=== PATIENT | female | born 1955 | race Caucasian/White ===

== ENCOUNTER 2017-01-11 23:26 | Inpatient (IN) | payer OTHER ==
[~2017-01-11] VITALS: Ht 165.1 cm; Wt 62.0 kg
[~2017-01-11 23:26] MED LIST: OXYC-279 PO
[2017-01-11 23:51] LABS: BASOPHIL # 0.1 10^3/ul (0.0-0.1); EOSINOPHILS # 0.3 10^3/ul (0.0-0.5); EOSINOPHILS % 4.4 % (0.0-7.0); HEMATOCRIT 37.8 % (37.0-47.0); HEMOGLOBIN 12.4 g/dl (12.0-16.0); LYMPHOCYTES % 26.9 % (15.0-51.0); MEAN CORPUSCULAR HEMOGLOBIN 32.2 pg (29.0-33.0); MEAN CORPUSCULAR HGB CONC 32.8 g/dl (32.0-37.0); MEAN CORPUSCULAR VOLUME 98.2 fl (82.0-101.0); MEAN PLATELET VOLUME 10.3 fl (7.4-10.4); MONOCYTE # 0.4 10^3/ul (0.3-0.9); MONOCYTES % 5.8 % (0.0-11.0); NEUTROPHIL # 4.5 10^3/ul (1.6-7.5); NEUTROPHILS % 61.6 % (39.0-77.0); PLATELET COUNT 276 10^3/UL (140-415); RED BLOOD COUNT 3.85 10^6/ul (4.20-5.40); RED CELL DISTRIBUTION WIDTH 12.5 % (11.5-14.5); WHITE BLOOD COUNT 7.3 10^3/ul (4.8-10.8)
[2017-01-12] VITALS (10 sets, daily range): BP systolic 91–132; BP diastolic 56–85; PULSE 70–89; RESP 17–20; Ht 165.1 cm; Wt 62.0 kg
--- NOTE | 2017-01-12 00:06 | RADRPT ---
PROCEDURE: XR Chest. CLINICAL INDICATION: Chest pain TECHNIQUE: Single AP portable chest. COMPARISON: 01/25/2016 Chest x-ray FINDINGS: The cardiomediastinal silhouette is within normal limits of size. Hyperexpansion and mildly coarse i nterstitial markings compatible with COPD. Atherosclerotic calcification of the aorta. The lungs ar e clear without pleural effusion or focal consolidation. No pneumothorax. The osseous structures an d soft tissues are unremarkable. IMPRESSION: 1. No evidence for active cardiopulmonary disease. RPTAT:AAJJ Physician Ld Date Time Electronically viewed and signed by Physician Ld on 01/12/2017 00:06 LINDA/
[2017-01-12 00:09] LABS: ALANINE AMINOTRANSFERASE 34 IU/L (13-69); ALBUMIN 4.1 g/dl (3.3-4.9); ALBUMIN/GLOBULIN RATIO 1.32; ALKALINE PHOSPHATASE 68 IU/L (42-121); ANION GAP 13 (8-16); ASPARTATE AMINO TRANSFERASE 21 IU/L (15-46); BILIRUBIN,INDIRECT 0.2 mg/dl (0-1.1); BILIRUBIN,TOTAL 0.2 mg/dl (0.2-1.3); BLOOD UREA NITROGEN 33 mg/dl (7-20); CALCIUM 9.6 mg/dl (8.4-10.2); CARBON DIOXIDE 35 mmol/L (21-31); CHLORIDE 99 mmol/L (97-110); CREATININE 1.31 mg/dl (0.44-1.00); GLUCOSE 103 mg/dl (70-220); POTASSIUM 3.3 mmol/L (3.5-5.1); SODIUM 144 mmol/L (135-144); TOTAL PROTEIN 7.2 g/dl (6.1-8.1)
[2017-01-12 00:17] LABS: B-TYPE NATRIURETIC PEPTIDE 761 PG/ML (0-125)
[2017-01-12 00:24] LABS: TROPONIN-I < 0.012 ng/ml (0.00-0.12)
[2017-01-12] MEDS ORDERED: IBUPROFEN 600 MG TAB ONE (01:25)
[2017-01-12] MEDS ORDERED: IBUPROFEN 600 MG TAB PO ONE (01:30)
[2017-01-12] MEDS ORDERED: hydrALAzine 20 MG INJ IV ONE ×2 (01:30)
--- NOTE | 2017-01-12 02:16 | ERD ---
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 Chest pain was mild to moderate intensity no exacerbating limiting factors pressure-like with substernal in location. Pain is mild to moderate intensity. No fevers no chills. No cough. Mild shortness of breath associated. No diaphoresis. No other current issues ROS All systems reviewed and are negative except as per history of present illness. Medications Home Meds Active Scripts Oxycodone HCl/Acetaminophen (Percocet 5-325 mg Tablet) 1 Each Tablet, 1 EACH PO TID for PAIN, #15 TAB Prov:KELLEE RAHMAN MD 01/25/16 Allergies Allergies: Coded Allergies: No Known Drug Allergies (Verified Allergy, Unknown, 01/25/16) PMhx/Soc History of Surgery: Yes (appendectomy, ectopic, c/section x2) Anesthesia Reaction: No Hx 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 Disorder: No Hx Respiratory Disorders: No Hx Cardiac Disorders: Yes (htn) Hx Psychiatric Problems: No Hx Miscellaneous Medical Probl: No Hx Alcohol Use: Yes Hx Substance Use: No Hx Tobacco Use: Yes Smoking Status: Current every day smoker Physical Exam Vitals Vital Signs Date Time Temp Pulse Resp B/P Pulse Ox O2 Delivery O2 Flow Rate FiO2 01/11/17 23:30 98.9 75 18 112/65 96 Physical Exam Const: [] Head: Atraumatic Eyes: Normal Conjunctiva ENT: Normal External Ears, Nose and Mouth. Neck: Full range of motion..~ No meningismus. Resp: Clear to auscultation bilaterally Cardio: Regular rate and rhythm, no murmurs Abd: Soft, non tender, non distended. Normal bowel sounds Skin: No petechiae or rashes Back: No midline or flank tenderness Ext: No cyanosis, or edema Neur: Awake and alert Psych: Normal Mood and Affect Result Diagram: 01/11/17 2335 01/11/175 Results 24 hrs Laboratory Tests Test 01/11/17 23:35 White Blood Count 7.310^3/ul Red Blood Count 3.8510^6/ul Hemoglobin 12.4g/dl Hematocrit 37.8% Mean Corpuscular Volume 98.2fl Mean Corpuscular Hemoglobin 32.2pg Mean Corpuscular Hemoglobin Concent 32.8g/dl Red Cell Distribution Width 12.5% Platelet Count 73475^3/UL Mean Platelet Volume 10.3fl Neutrophils % 61.6% Lymphocytes % 26.9% Monocytes % 5.8% Eosinophils % 4.4% Basophils % 1.0% Nucleated Red Blood Cells % 0.0/100WBC Neutrophils # 4.510^3/ul Lymphocytes # 2.010^3/ul Monocytes # 0.410^3/ul Eosinophils # 0.310^3/ul Basophils # 0.110^3/ul Nucleated Red Blood Cells # 0.010^3/ul Sodium Level 144mmol/L Potassium Level 3.3mmol/L Chloride Level 99mmol/L Carbon Dioxide Level 35mmol/L Anion Gap 13 Blood Urea Nitrogen 33mg/dl Creatinine 1.31mg/dl Glucose Level 103mg/dl Calcium Level 9.6mg/dl Total Bilirubin 0.2mg/dl Direct Bilirubin 0.00mg/dl Indirect Bilirubin 0.2mg/dl Aspartate Amino Transf (AST/SGOT) 21IU/L Alanine Aminotransferase (ALT/SGPT) 34IU/L Alkaline Phosphatase 68IU/L Troponin I < 0.012ng/ml B-Type Natriuretic Peptide 761PG/ML Total Protein 7.2g/dl Albumin 4.1g/dl Globulin 3.10g/dl Albumin/Globulin Ratio 1.32 Current Medications Medications (Trade) Dose Ordered Sig/Lorena Route PRN Reason Start Time Stop Time Status Last Admin Dose Admin Hydralazine HCl (Apresoline) 20 mg ONCE ONCE IV 01/12/17 01:30 01/12/17 01:31 DC 01/12/17 01:37 Hydralazine HCl (Apresoline) 20 mg ONCE ONCE IV 01/12/17 01:30 01/12/17 01:31 DC Ibuprofen (Motrin) 600 mg STK-MED ONCE .ROUTE 01/12/17 01:25 01/12/17 01:26 DC Ibuprofen (Motrin) 600 mg ONCE ONCE PO 01/12/17 01:30 01/12/17 01:31 DC 01/12/17 01:37 Procedures/MDM EKG: Rate/Rhythm: [Normal Sinus Rhythm] QRS, ST, T-waves: [No changes consistent w/ acute ischemia] Impression: [No evidence of ischemia or arrhythmia] Chest X-ray 1V Interpreted by me: Soft Tissue: No acute abnormalities Bones: No acute abnormalities Mediastinum/Cardiac Silhouette/Lungs: [No acute abnormalities] Patient's symptoms are concerning for cardiac cause will require inpatient workup and continuous monitoring. Further w/u for ischemia, arrhythmia, PE or dissection will be deferred to the inpatient team. Accepting Care Team: Current data and ongoing care discussed. Time: 1:30 AM Primary Provider: Hospitalists Consulting: [XOXOXO] Outstanding Data: none Departure Diagnosis: Primary Impression: Chest pain Chest pain type: unspecified Qualified Code: R07.9 - Chest pain, unspecified type Condition: Serious ABRIL VALENZUELA Jan 12, 2017 02:16
[2017-01-12] MEDS ORDERED: morphine 4 MG/ML VIAL IV STA (03:29)
[2017-01-12] MEDS ORDERED: ONDANSETRON 4 MG INJ IV STA (03:29)
[2017-01-12] MEDS ORDERED: SOD CHLORIDE 0.9% 500 ML IV ONE (05:00)
[2017-01-12] MEDS ORDERED: NITROGLYCERIN (SL) 0.4 MG TAB SL PRN (05:00)
[2017-01-12] MEDS ORDERED: FURO20TA3 PO (05:11)
[2017-01-12] MEDS ORDERED: POTASSIUM CHLORIDE (SR) 20 MEQ TAB PO ONE (05:30)
[2017-01-12] MEDS: morphine 2 MG INJ IV PRN ×3 (06:08→22:33)
[2017-01-12] MEDS ORDERED: DIPHENHYDRAMINE 25 MG CAP PO PRN (07:30)
--- NOTE | 2017-01-12 08:14 | HP ---
Date/Time of Note Date/Time of Note DATE: 01/12/17 TIME: 08:06 Assessment/Plan VTE Prophylaxis VTE Prophylaxis Intervention: heparin Lines/Catheters IV [facility] (from [facility] Saline Lock Urinary Cath still in place: No Assessment/Plan Assessment/Plan 1. Chest pain, rule out ACS -Telemetry monitoring Trend troponin Supplemental oxygen, aspirin, beta-cleve, with as needed nitro morphine. 2D echo and cardiology consult 2. Presumed CHRISTINA -Gentle IV fluids, then will monitor a.m. labs -Nephrology consult 3. History of hypertension, blood pressure within goal -Continue antihypertensives adjustment as needed 4. History of COPD -Supplemental oxygen, with as needed bronchodilators and as needed steroid 5. Tobacco abuse -Smoking cessation advised HPI/ROS Admit Date/Time Admit Date/Time Jan 12, 2017 at 02:00 Hx of Present Illness This is a 61-year-old female with a history of hypertension, COPD and probable CHF who presented to the ER complaining of chest pain. Pain started 2 days ago and is located in the mid chest with radiation to her left arm. Pain is described as "a hole in the chest, aches and as if somebody sits on my chest ". She reported associated shortness of breath. She said that she had cardiac cath a year ago and was told that "there is too little to clean". Patient takes Lasix at home, but she does not really know why. She smokes about 1 PPD. When she presented to the ER, vitals were stable. First troponin is negative and EKG was without ST-T wave abnormalities. Chest x-ray was no active findings. PMH/Family/Social Social History Smoking Status: Current every day smoker Exam/Review of Systems Vital Signs Vitals Vital Signs Date Time Temp Pulse Resp B/P Pulse Ox O2 Delivery O2 Flow Rate FiO2 01/12/17 04:27 98.1 85 18 110/85 97 Room Air Intake and Output 01/11/17 01/11/17 01/12/17 15:00 23:00 07:00 Intake Total 400 ml Balance 400 ml Exam Constitutional: alert, oriented, other (Appears slightly weak) Head: atraumatic, normocephalic Eyes: EOMI, PERRL ENMT: other (Missing tooth and poor dentition) Respiratory: clear to auscultation, normal air movement Cardiovascular: nl pulses, regular rate and rhythm Gastrointestinal: soft Extremities: normal pulses Labs Result Diagram: 01/11/17 2335 01/11/17 2335 Medications Medications Current Medications Aspirin (Aspirin) 81 mg DAILY PO ; Start 01/12/17 at 09:00 Atorvastatin Calcium (Lipitor) 20 mg HS PO ; Start 01/12/17 at 21:00 Nitroglycerin (Nitroglycerin (Sl Tab) 0.4 Mg) 1 tab Q5M PRN SL ANGINA; Start 01/12/17 at 05:00 Morphine Sulfate (morphine) 2 mg Q4H PRN IV PAIN Last administered on 06:08; Admin Dose 2 MG; Start 01/12/17 at 05:00 Heparin Sodium (Porcine) (Heparin (5000 Units/0.5 ml)) 5,000 unit BID SC ; Start 01/12/17 at 09:00 Metoprolol Tartrate (Lopressor) 12.5 mg BID PO ; Start 01/12/17 at 09:00 Furosemide (Lasix) 20 mg DAILY PO ; Start 01/12/17 at 09:00 Morphine Sulfate (Ms Contin (Er)) 15 mg BID PO ; Start 01/12/17 at 09:00 Diphenhydramine HCl (Benadryl) 25 mg Q6H PRN PO ITCHING; Start 01/12/17 at 07: 30 ABRIL LAND MD Jan 12, 2017 08:14
[2017-01-12 08:22] LABS: BASOPHIL # 0.1 10^3/ul (0.0-0.1); BASOPHILS % 1.1 % (0.0-2.0); EOSINOPHILS # 0.3 10^3/ul (0.0-0.5); EOSINOPHILS % 4.4 % (0.0-7.0); HEMATOCRIT 35.8 % (37.0-47.0); HEMOGLOBIN 11.8 g/dl (12.0-16.0); LYMPHOCYTES # 2.1 10^3/ul (0.8-2.9); LYMPHOCYTES % 28.5 % (15.0-51.0); MEAN CORPUSCULAR HEMOGLOBIN 32.6 pg (29.0-33.0); MEAN CORPUSCULAR VOLUME 98.9 fl (82.0-101.0); MEAN PLATELET VOLUME 10.6 fl (7.4-10.4); MONOCYTE # 0.5 10^3/ul (0.3-0.9); NEUTROPHIL # 4.4 10^3/ul (1.6-7.5); NEUTROPHILS % 58.7 % (39.0-77.0); PLATELET COUNT 279 10^3/UL (140-415); RED BLOOD COUNT 3.62 10^6/ul (4.20-5.40); RED CELL DISTRIBUTION WIDTH 12.8 % (11.5-14.5); WHITE BLOOD COUNT 7.5 10^3/ul (4.8-10.8)
[2017-01-12 08:39] LABS: PHOSPHORUS 4.5 mg/dl (2.5-4.9)
[2017-01-12 08:58] LABS: ALBUMIN 3.6 g/dl (3.3-4.9); ALBUMIN/GLOBULIN RATIO 1.24; BILIRUBIN,INDIRECT 0.2 mg/dl (0-1.1); BILIRUBIN,TOTAL 0.2 mg/dl (0.2-1.3); CREATININE 1.14 mg/dl (0.44-1.00); POTASSIUM 4.1 mmol/L (3.5-5.1); TOTAL PROTEIN 6.5 g/dl (6.1-8.1)
[2017-01-12] MEDS ORDERED: METOPROLOL 25 MG TAB PO SCH (09:00)
[2017-01-12] MEDS ORDERED: HEPARIN 5,000 UNIT/0.5 ML VIAL SC SCH (09:00)
[2017-01-12] MEDS ORDERED: FUROSEMIDE 20 MG TAB PO SCH (09:00)
[2017-01-12] MEDS ORDERED: ASPIRIN 325 MG TAB PO SCH (09:00)
[2017-01-12] MEDS ORDERED: ASPIRIN 81 MG TAB PO SCH (09:30)
[2017-01-12] MEDS ORDERED: HEPARIN 1000 UNITS/ML 10 ML INJ IV ONE (10:00)
[2017-01-12] MEDS ORDERED: HEPARIN 1000 UNITS/ML 10 ML INJ IV PRN (10:00)
[2017-01-12] MEDS: morphine (ER) 15 MG TAB PO SCH ×2 (10:38→20:24)
[2017-01-12] MEDS: HEPARIN 25000 UNITS/250 ML 250 ML IV SCH ×2 (10:44→17:20)
[2017-01-12 11:43] LABS: BASOPHIL # 0.1 10^3/ul (0.0-0.1); EOSINOPHILS # 0.4 10^3/ul (0.0-0.5); EOSINOPHILS % 5.1 % (0.0-7.0); HEMATOCRIT 35.9 % (37.0-47.0); LYMPHOCYTES # 2.3 10^3/ul (0.8-2.9); LYMPHOCYTES % 31.7 % (15.0-51.0); MEAN CORPUSCULAR HEMOGLOBIN 33.3 pg (29.0-33.0); MEAN CORPUSCULAR HGB CONC 33.4 g/dl (32.0-37.0); MEAN CORPUSCULAR VOLUME 99.7 fl (82.0-101.0); MEAN PLATELET VOLUME 10.1 fl (7.4-10.4); MONOCYTE # 0.5 10^3/ul (0.3-0.9); MONOCYTES % 6.8 % (0.0-11.0); NEUTROPHILS % 55.1 % (39.0-77.0); PLATELET COUNT 253 10^3/UL (140-415); RED CELL DISTRIBUTION WIDTH 12.6 % (11.5-14.5); WHITE BLOOD COUNT 7.3 10^3/ul (4.8-10.8)
[2017-01-12 12:06] LABS: INR 0.96; PROTIME 12.9 Sec (11.9-14.9)
[2017-01-12 12:16] LABS: PARTIAL THROMBOPLASTIN TIME 122.2 Sec (25.0-35.0)
--- NOTE | 2017-01-12 18:15 | RADRPT ---
Echocardiogram Report Patient Name: BENEDICT CISNEROS Gender: Female Date: 1955 Study Date: 12-Jan-2017 Senior Commissions Analyst: Jose De Jesus Gómez [facility] Location: 5548 Ref. Physician: ABRIL LAND Quality: Adequate Procedures: Transthoracic echocardiogram with complete 2D, M-Mode, and doppler examination. Indications: Chest Pain. 2D/M Mode Doppler Measurement Value Normal Ranges Measurement Value Normal Ranges LVIDd 2D 4.7 3.5 - 5.6 cm AV Peak Ifeanyi 1.2 m/sec LVIDs 2D 3.2 2.1 - 4.1 cm AV Peak PG 6.1 mmHg LVPWd 2D 1.0 0.6 - 1.1 cm LVOT Peak Ifeanyi 0.7 m/sec IVSd 2D 1.0 0.6 - 1.1 cm LVOT Peak PG 2.0 mmHg AoR Diam 2D 3.1 2.0 - 3.7 cm MV E Peak Ifeanyi 0.5 m/sec EDV 2D 102.6 cm3 MV A Peak Ifeanyi 0.9 m/sec ESV 2D 31.3 cm3 MV E/A 0.6 LA Dimen 2D 3.5 2.3 - 4.0 cm MV Decel Time 189 msec MV Decel [place] 3 MV E/A 0.6 TR Peak Ifeanyi 4.0 m/sec TR Peak PG 63.0 mmHg RVSP 66.0 mmHg Findings Left Ventricle: Normal left ventricular systolic function. Normal left ventricular cavity size. Normal left ventricular wall thickness. Ejection fraction is visually estimated at 55 %. Tissue Doppler/Mitral Doppler indices are consistent with impaired relaxation (Stage I diastolic dysfunction). Right Ventricle: Normal right ventricular size. Normal right ventricular systolic function. Left Atrium: The left atrium is normal in size. Right Atrium: The right atrium is normal in size. Mitral Valve: Mitral valve leaflets appear mildly thickened. Mild mitral annular calcification. Trace mitral regurgitation. Aortic Valve: Normal appearance of the aortic valve. No significant aortic stenosis or insufficiency. Tricuspid Valve: Normal appearance of the tricuspid valve. Estimated peak PA systolic pressure 42 mmHg. There is mild to moderate tricuspid regurgitation. Pulmonic Valve: Normal pulmonic valve appearance. Pericardium: Normal pericardium with no significant pericardial effusion. Aorta: Normal aortic root. IVC: Normal size and normal respiratory collapse consistent with normal right atrial pressure. Conclusions 1.The left ventricle is normal in size and systolic function. 2.Estimated left ventricular ejection fraction of 55-60%. 3.Grade 1 diastolic dysfunction. Electronically Signed By: Jerry Lynch 12-Jan-2017 18:15:30 -0800 Patient Name: BENEDICT CISNEROS Study Date: 12-Jan-[id number]
--- NOTE | 2017-01-12 18:52 | CONS ---
Date/Time of Note Date/Time of Note DATE: 01/12/17 TIME: 18:42 Assessment/Plan Assessment/Plan Chief Complaint/Hosp Course Assessment: NSTEMI Acute kidney injury - improving with intravenous fluid hydration Chronic diastolic heart failure - clinically dry Hypertension Chronic obstructive pulmonary disease Tobacco use - counselled on smoking cessation for >10 minutes Recommendations: -continue heparin drip -aspirin at 325mg daily -atorvastatin 40mg daily, check lipid panel -carvedilol 6.25mg BID -hold Lasix, continue intravenous fluid hydration -echocardiogram showed LVEF 55-60%, grade 1 diastolic dysfunction -coronary angiography scheduled for tomorrow afternoon Problems: Consultation Date/Type/Reason Admit Date/Time Jan 12, 2017 at 02:00 Type of Consultation: Cardiology Hx of Present Illness The patient is a 61 year-old female who presented with two days of chest pain. She describes a sensation of "hole in the chest." EKG showed sinus rhythm, Q waves in V1-V3, and no acute ischemic changes. Initial troponin was elevated at 0.5 and has subsequently trended up to 2.0. She has been started on a heparin drip. She reports having chest pain approximately one year ago and underwent some sort of cardiac procedure, possibly coronary angiography, and was told that "there was too little to clean." 14 point review of systems negative other than per HPI. Past Medical History Hypertension Congestive heart failure Chronic obstructive pulmonary disease Past Surgical History Past Surgical Hx: appendectomy, other (cesarian section) Family History Significant Family History: heart disease (parents with myocardial infarction) Social History Smoking Status: Current every day smoker Exam/Review of Systems Vital Signs Vitals Vital Signs Date Time Temp Pulse Resp B/P Pulse Ox O2 Delivery O2 Flow Rate FiO2 01/12/17 16:07 70 01/12/17 15:41 98.5 18 110/76 95 01/12/17 04:27 Room Air Intake and Output 01/11/17 01/11/17 01/12/17 15:00 23:00 07:00 Intake Total 400 ml Balance 400 ml Exam Constitutional: alert, well developed Psych: nl mood/affect, no complaints Head: atraumatic, normocephalic Eyes: nl conjunctiva, nl lids ENMT: nl external ears & nose, nl nasal mucosa & septum Neck: non-tender, supple, No jvd Respiratory: diminished breath sounds, No wheezing Cardiovascular: regular rate and rhythm Gastrointestinal: non-tender, soft Musculoskeletal: nl extremities to inspection Extremities: No clubbing, No cyanosis, No edema 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: COMMUNITY HEALTH EDUCATION COORDINATOR II-XII intact, nl mental status Skin: nl turgor Results Result Diagram: 01/12/17 1121 01/12/17 0728 Results 24 hrs Laboratory Tests Test 01/11/17 23:35 01/12/17 07:28 01/12/17 11:21 01/12/17 15:31 White Blood Count 7.3 7.5 7.3 Red Blood Count 3.85 L 3.62 L 3.60 L Hemoglobin 12.4 11.8 L 12.0 Hematocrit 37.8 35.8 L 35.9 L Mean Corpuscular Volume 98.2 98.9 99.7 Mean Corpuscular Hemoglobin 32.2 32.6 33.3 H Mean Corpuscular Hemoglobin Concent 32.8 33.0 33.4 Red Cell Distribution Width 12.5 12.8 12.6 Platelet Count 276 279 253 Mean Platelet Volume 10.3 10.6 H 10.1 Neutrophils % 61.6 58.7 55.1 Lymphocytes % 26.9 28.5 31.7 Monocytes % 5.8 7.0 6.8 Eosinophils % 4.4 4.4 5.1 Basophils % 1.0 1.1 1.0 Nucleated Red Blood Cells % 0.0 0.0 0.0 Neutrophils # 4.5 4.4 4.0 Lymphocytes # 2.0 2.1 2.3 Monocytes # 0.4 0.5 0.5 Eosinophils # 0.3 0.3 0.4 Basophils # 0.1 0.1 0.1 Nucleated Red Blood Cells # 0.0 0.0 0.0 Sodium Level 144 143 Potassium Level 3.3 L 4.1 Chloride Level 99 103 Carbon Dioxide Level 35 H 33 H Anion Gap 13 11 Blood Urea Nitrogen 33 H 31 H Creatinine 1.31 H 1.14 H Glucose Level 103 89 Calcium Level 9.6 9.0 Total Bilirubin 0.2 0.2 Direct Bilirubin 0.00 0.00 Indirect Bilirubin 0.2 0.2 Aspartate Amino Transf (AST/SGOT) 21 30 Alanine Aminotransferase (ALT/SGPT) 34 28 Alkaline Phosphatase 68 66 Troponin I < 0.012 0.500 *H 1.410 *H B-Type Natriuretic Peptide 761 H Total Protein 7.2 6.5 Albumin 4.1 3.6 Globulin 3.10 2.90 Albumin/Globulin Ratio 1.32 1.24 Hemoglobin A1c 5.3 Phosphorus Level 4.5 Magnesium Level 2.0 Prothrombin Time 12.9 Prothrombin Time Ratio 1.0 INR International Normalized Ratio 0.96 Activated Partial Thromboplast Time 122.2 *H 127.5 *H Test 01/12/17 17:43 Troponin I 2.030 *H Medications Medications Current Medications Atorvastatin Calcium (Lipitor) 20 mg HS PO ; Start 01/12/17 at 21:00 Nitroglycerin (Nitroglycerin (Sl Tab) 0.4 Mg) 1 tab Q5M PRN SL ANGINA; Start 01/12/17 at 05:00 Morphine Sulfate (morphine) 2 mg Q4H PRN IV PAIN Last administered on 18:18; Admin Dose 2 MG; Start 01/12/17 at 05:00 Metoprolol Tartrate (Lopressor) 12.5 mg BID PO Last administered on 01/12/17 09:54; Admin Dose 12.5 MG; Start 01/12/17 at 09:00 Furosemide (Lasix) 20 mg DAILY PO Last administered on 01/12/17 09:53; Admin Dose 20 MG; Start 01/12/17 at 09:00 Morphine Sulfate (Ms Contin (Er)) 15 mg BID PO Last administered on 01/12/17 10:38; Admin Dose 15 MG; Start 01/12/17 at 09:00 Diphenhydramine HCl (Benadryl) 25 mg Q6H PRN PO ITCHING; Start 01/12/17 at 07: 30 Aspirin (Aspirin) 81 mg DAILY PO Last administered on 01/12/17 09:59; Admin Dose 81 MG; Start 01/12/17 at 09:30 RAMON DAVENPORT MD Jan 12, 2017 18:52
[2017-01-12] MEDS: ATORVASTATIN 20 MG TAB PO SCH (20:23)
[2017-01-12] MEDS: SOD CHLORIDE 0.9% 1,000 ML IV SCH (20:26)
--- NOTE | 2017-01-12 20:27 | CONS ---
DATE OF ADMISSION: 01/12/2017 DATE OF CONSULTATION: TYPE OF CONSULTATION: Nephrology. REASON FOR CONSULTATION: Acute kidney injury. PHYSICIAN REQUESTING CONSULT: Dr. Land. HISTORY OF PRESENT ILLNESS: This is a 61-year-old female with a past medical history of hypertensio n, COPD who presents to the emergency room at [facility] with chest pain. The pat jannette stated that her symptoms started 2 days ago. It was located in the mid chest with radiation to the left arm. The patient had shortness of breath on admission. Upon arrival, the patient had ini tial troponin which was negative. EKG showed ST wave abnormalities. Chest x-ray showed no acute fi ndings. In the emergency room, the patient was given aspirin, heparin, Motrin and hydralazine due t o hypertension. The patient was admitted to telemetry for further evaluation. In terms of the patient's renal history, the patient herself denies any prior history of chronic kid jakob disease. On admission, the patient had a creatinine of 1.31 mg/dL that has improved to 1.14 mg/ dL. There have been no reports of any hemoptysis, hematemesis, hematochezia. No rashes. PAST MEDICAL HISTORY: As stated above, history of hypertension, history of COPD. FAMILY HISTORY: Noncontributory. SOCIAL HISTORY: Positive tobacco use. MEDICATIONS: The patient's medications have been reviewed. REVIEW OF SYSTEMS: A 14-point review of systems was conducted. Pertinent positives stated in HPI, otherwise negative. PHYSICAL EXAMINATION: VITAL SIGNS: Blood pressure is 132/83, respirations 17, pulse 67, temperature 98.2. HEENT: Head is normocephalic. NECK: Supple. HEART: Regular rate. LUNGS: Show diminished breath sounds at the base. ABDOMEN: Soft, nontender to palpation without rebound or guarding. EXTREMITIES: Negative for clubbing, cyanosis, no edema. DERMATOLOGIC: No rashes. MUSCULOSKELETAL: No joint effusion. NEUROLOGIC: No focal deficits. LABORATORY DATA: Shows sodium 143, potassium 4.1, BUN , creatinine 1.14. White count 7.3, hem oglobin 12.0, platelet count is 253. ASSESSMENT AND PLAN: This is a 61-year-old female who presents with: 1. Nonoliguric acute kidney injury with unknown baseline creatinine. Etiology of current acute kid jakob injury is likely secondary to hemodynamics. Plan is to do a full evaluation. Will check UA wit h microanalysis. Check urine lytes. Will consider checking a renal ultrasound. The patient's garfield l function has improved with supportive care. Would otherwise continue supportive care, renally dos e all medications, avoid nephrotoxins. 2. Mild anemia. Monitor hemoglobin and hematocrit levels. 3. Hypertension. Blood pressure is currently controlled. Will defer JULIO inhibitor or ARB Until e patient's renal function has improved. 4. Mineral bone disorder. Monitor calcium and phosphorus levels. 5. Chest pain. Rule out acute coronary syndrome. Continue to monitor serial troponins. Continue medical management. Follow up with cardiology. 6. History of chronic obstructive pulmonary disease. Continue medical management. Thank you, Dr. Land, for this interesting consult. It will be a pleasure to follow the patient with you throughout the hospital course. Dictated By: JODIE TOPETE DO NR/NTS Conf#: [id number] DID#: [id number] CC: ABRIL LAND MD;*EndCC*
[2017-01-12] MEDS ORDERED: ATORVASTATIN 20 MG TAB PO SCH (21:00)
[2017-01-12] MEDS ORDERED: ZOLPIDEM 5 MG TAB PO ONE (21:00)
[2017-01-13] VITALS (39 sets, daily range): BP systolic 101–163; BP diastolic 60–92; PULSE 55–77; RESP 15–33
[2017-01-13] MEDS: HEPARIN 25000 UNITS/250 ML 250 ML IV SCH (00:56)
[2017-01-13] MEDS: morphine 2 MG INJ IV PRN ×2 (04:42→21:08)
[2017-01-13] MEDS: SOD CHLORIDE 0.9% 1,000 ML IV SCH ×3 (04:43→21:07)
[2017-01-13] MEDS ORDERED: MAGNESIUM HYDROXIDE 30ML CUP PO PRN (05:30)
[2017-01-13] MEDS ORDERED: BIVALIRUDIN 250 MG/50 ML NS BAG IVPB ONE (07:00)
[2017-01-13] MEDS ORDERED: ASPIRIN 325 MG TAB PO SCH (09:00)
[2017-01-13] MEDS: SENNA TAB PO SCH ×2 (09:25→21:00)
[2017-01-13] MEDS: morphine (ER) 15 MG TAB PO SCH ×2 (09:27→21:06)
--- NOTE | 2017-01-13 09:32 | PN ---
Date/Time of Note Date/Time of Note DATE: 01/13/17 TIME: 09:26 Assessment/Plan VTE Prophylaxis VTE Prophylaxis Intervention: SCD's Lines/Catheters IV [facility]ter Type (from [facility]): Peripheral IV Urinary Cath still in place: No Assessment/Plan Chief Complaint/Hosp Course Assessment and plan 1. Chest pain. Noted with elevated troponin. Field Operations Supervisor was consulted. Echocardiogram did show patient with ejection fraction of 55% with stage I diastolic dysfunction. Tentative plan for angiogram today. Will follow up. Continue on heparin for now. 2. AK I. Medications to be renally dosed. Manufacturing Lead following. Follow-up on renal panel. Appears to be improving. 3. Essential hypertension. Stable at present. Provide with antihypertensives as needed 4. History of COPD. No estimation noted at this time. Smoking cessation was advised. O2 as needed. 5. Anemia. Stable at present. Will monitor for now. disposition and plan: Continue telemetry monitoring. Continue heparin drip. Plan for angiogram today. Will follow. Discussed plan of care with Dr. Mcintyre Problems: Subjective 24 Hr Interval Summary Free Text/Dictation still has some chest discomfort Exam/Review of Systems Vital Signs Vitals Vital Signs Date Time Temp Pulse Resp B/P Pulse Ox O2 Delivery O2 Flow Rate FiO2 01/13/17 08:04 73 01/13/17 07:53 Nasal Cannula 2.0 01/13/17 07:50 98.2 20 148/78 100 Intake and Output 01/12/17 01/12/17 01/13/17 15:00 23:00 07:00 Intake Total 1000 ml Balance 1000 ml Exam Constitutional: alert, oriented Psych: nl mood/affect Head: normocephalic Eyes: nl conjunctiva ENMT: nl external ears & nose Neck: non-tender, supple Respiratory: clear to auscultation, normal air movement Cardiovascular: other (regular rate ) Gastrointestinal: non-tender, soft Musculoskeletal: No swelling 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: MANAGER TESTING II-XII intact, nl mental status, nl speech Skin: nl turgor Results Result Diagram: 01/12/17 1121 01/12/17 0728 Results 24 hrs Laboratory Tests Test 01/12/17 11:21 01/12/17 15:31 01/12/17 17:43 01/12/17 23:10 White Blood Count 7.3 Red Blood Count 3.60 L Hemoglobin 12.0 Hematocrit 35.9 L Mean Corpuscular Volume 99.7 Mean Corpuscular Hemoglobin 33.3 H Mean Corpuscular Hemoglobin Concent 33.4 Red Cell Distribution Width 12.6 Platelet Count 253 Mean Platelet Volume 10.1 Neutrophils % 55.1 Lymphocytes % 31.7 Monocytes % 6.8 Eosinophils % 5.1 Basophils % 1.0 Nucleated Red Blood Cells % 0.0 Neutrophils # 4.0 Lymphocytes # 2.3 Monocytes # 0.5 Eosinophils # 0.4 Basophils # 0.1 Nucleated Red Blood Cells # 0.0 Prothrombin Time 12.9 Prothrombin Time Ratio 1.0 INR International Normalized Ratio 0.96 Activated Partial Thromboplast Time 122.2 *H 127.5 *H 52.1 H Troponin I 1.410 *H 2.030 *H Medications Medications Current Medications Nitroglycerin (Nitroglycerin (Sl Tab) 0.4 Mg) 1 tab Q5M PRN SL ANGINA; Start 01/12/17 at 05:00 Morphine Sulfate (morphine) 2 mg Q4H PRN IV PAIN Last administered on 04:42; Admin Dose 2 MG; Start 01/12/17 at 05:00 Morphine Sulfate (Ms Contin (Er)) 15 mg BID PO Last administered on 01/12/17 20:24; Admin Dose 15 MG; Start 01/12/17 at 09:00 Diphenhydramine HCl (Benadryl) 25 mg Q6H PRN PO ITCHING; Start 01/12/17 at 07: 30 Aspirin (Aspirin) 325 mg DAILY PO ; Start 01/13/17 at 09:00 Atorvastatin Calcium (Lipitor) 40 mg HS PO Last administered on 01/12/17 20:23 ; Admin Dose 40 MG; Start 01/12/17 at 21:00 Carvedilol (Coreg) 6.25 mg BID PO Last administered on 01/12/17 20:24; Admin Dose 6.25 MG; Start 01/12/17 at 21:00 Hydralazine HCl 25 mg 25 mg Q6 PRN PO SBP>150; Start 01/12/17 at 19:00 Sodium Chloride (NS) 1,000 ml @ 50 mls/hr Q20H IV Last administered on 04:43; Admin Dose 100 MLS/HR; Start 01/12/17 at 19:00 Senna (Senokot) 2 tab BID PO ; Start 01/13/17 at 09:00 Magnesium Hydroxide (Milk Of Mag) 30 ml DAILY PRN PO CONSTIPATION; Start at 05:30 ARCADIO CORREA Jan 13, 2017 09:32
[2017-01-13 11:00] LABS: BASOPHIL # 0.1 10^3/ul (0.0-0.1); BASOPHILS % 1.3 % (0.0-2.0); EOSINOPHILS # 0.6 10^3/ul (0.0-0.5); EOSINOPHILS % 6.9 % (0.0-7.0); HEMATOCRIT 37.3 % (37.0-47.0); HEMOGLOBIN 11.9 g/dl (12.0-16.0); LYMPHOCYTES # 2.3 10^3/ul (0.8-2.9); LYMPHOCYTES % 27.4 % (15.0-51.0); MEAN CORPUSCULAR HEMOGLOBIN 32.8 pg (29.0-33.0); MEAN CORPUSCULAR HGB CONC 31.9 g/dl (32.0-37.0); MEAN CORPUSCULAR VOLUME 102.8 fl (82.0-101.0); MEAN PLATELET VOLUME 10.7 fl (7.4-10.4); MONOCYTE # 0.5 10^3/ul (0.3-0.9); MONOCYTES % 5.7 % (0.0-11.0); NEUTROPHIL # 4.9 10^3/ul (1.6-7.5); NEUTROPHILS % 58.5 % (39.0-77.0); PLATELET COUNT 251 10^3/UL (140-415); RED BLOOD COUNT 3.63 10^6/ul (4.20-5.40); WHITE BLOOD COUNT 8.3 10^3/ul (4.8-10.8)
[2017-01-13 11:11] LABS: PHOSPHORUS 4.1 mg/dl (2.5-4.9)
[2017-01-13 11:12] LABS: CALCIUM 8.7 mg/dl (8.4-10.2); CREATININE 0.83 mg/dl (0.44-1.00)
--- NOTE | 2017-01-13 11:30 | PN ---
DATE: 01/13/2017 SUBJECTIVE: The patient is pending cardiac catheterization today. No other events noted. OBJECTIVE: VITAL SIGNS: Blood pressure 148/78, respirations 20, pulse 68, temperature 98.2. HEENT: Head is normocephalic. NECK: Supple. HEART: Regular rate. LUNGS: Show diminished breath sounds at base. ABDOMEN: Soft, nontender to palpation. No rebound or guarding. EXTREMITIES: Negative for clubbing, cyanosis, no edema. DERMATOLOGIC: No rashes. MUSCULOSKELETAL: No joint effusions. NEUROLOGIC: No change in exam. MEDICATIONS: The patient's medications have been reviewed. LABORATORY DATA: From 01/13/2017, currently pending. ASSESSMENT AND PLAN: 1. Nonoliguric acute kidney injury with unknown baseline creatinine. Etiology is likely due to hem odynamics. The patient's renal function appears to be improving. A renal panel is pending today. Still waiting for urinalysis and renal ultrasound. Would otherwise continue current treatment plan, supportive care, renally dose all meds. The patient is pending cardiac catheterization. Continue gentle IV hydration. Will start the patient on Mucomyst. 2. Mild anemia. Monitor hemoglobin and hematocrit levels. 3. Hypertension. Blood pressure controlled. Continue to monitor. 4. Mineral bone disorder. Continue to monitor calcium and phosphorus levels. 5. Non-ST elevation myocardial infarction. The patient is pending cardiac catheterization. Contin ue medical management and follow up with Cardiology. 7. History of chronic obstructive pulmonary disease. Continue current treatment plan. Dictated By: JODIE BRIGGS/VIKA Conf#: [id number] DID#: [id number] CC: ABRIL LAND MD;*EndCC*
[2017-01-13] MEDS ORDERED: LIDOCAINE 1% (MDV) 20 ML INJ ONE (16:33)
[2017-01-13] MEDS ORDERED: FENTAnyl 50 MCG/ML VIAL ONE (16:33)
[2017-01-13] MEDS ORDERED: MIDAZOLAM 1 MG/ML 2 ML INJ ONE (16:33)
[2017-01-13] MEDS ORDERED: HEPARIN 1000 UNITS/ML 10 ML INJ ONE (16:33)
[2017-01-13] MEDS ORDERED: VERAPAMIL 5 MG INJ ONE (16:34)
[2017-01-13] MEDS ORDERED: ASPIRIN 325 MG TAB ONE (17:01)
[2017-01-13] MEDS ORDERED: CLOPIDOGREL 300 MG TAB ONE (17:01)
[2017-01-13] MEDS ORDERED: ONDANSETRON 4 MG INJ ONE (17:09)
[2017-01-13] MEDS ORDERED: IOHEXOL 350MG/ML 50 ML BTL ONE (17:40)
[2017-01-13] MEDS ORDERED: IODIXANOL LOCM 100 ML BTL ONE (17:40)
--- NOTE | 2017-01-13 17:50 | OPR ---
Date/Time of Note Date/Time of Note DATE: 01/13/17 TIME: 17:42 Operative Report Preoperative Diagnosis NSTEMI Postoperative Diagnosis NSTEMI Surgeon see signature line Lab Nurse none Anesthesia Type: moderate sedation Estimated Blood Loss: minimal Transfusion none Specimen none Grafts/Implants none Complications none Procedure Description Procedure Date:01/13/2017 Supervisor [employer]/surgeon: Morales Peters MD. Procedures Performed: 1)Left heart catheterization with selective left and right coronary angiography. 2)Balloon angioplasty and stenting of the mid LAD with a Synergy 2.25 x 16 stent. Pre-operative Diagnosis:NSTEMI Post-operative Diagnosis:NSTEMI s/p PCI of mid LAD Indications:61 yo F with COPD, tobacco use who presented with chest pain and was found to have an NSTEMI with trop 2.0. Description of Procedure: After informed consent, the patient was brought to the cardiac catheterization lab. The procedure site was prepped and draped in usual manner. The patient was premedicated with versed 0.5mg and fentanyl 25 mcg. 1mL lidocaine was injected into the right wrist. Next using the posterior wall technique, the 6/ 5 kazakh sheath was inserted into the right radial artery. Next using the JL3.5 and JR4, selective angiography of the left and right coronary arteries were obtained. The pigtail was then advanced into the ventricle and hemodynamics obtained. Left ventricle angiography was not obtained. The decision was made to proceed with PCI of the mid LAD. A LBU 3.5 guide was advanced and engaged into the left coronary artery. After appropriate anticoagulation and antiplatelets were given, the Runthrough angioplasty wire was advanced past the lesion. Next the 2.0 X 12 balloon was used to dilate the lesion times 1 at a maximum of 10 gregorio. Subsequently, the Synergy 2.25 x 16 stent was advanced to the lesion and deployed at 12 gregorio. Final angiography revealed MILLY 3 flow, no edge dissection, and appropriate stent expansion. Next all equipment was removed and hemostasis was achieved by TR band Findings: Anatomy/Hemodynamics: Left main:normal LAD: calcified, tortuous, mid 80-90% Diagonal:very small diagonals one with prox 80% Circumflex: prox 40-50% Obtuse marginal: mid 30% RCA:luminal irregularities PDA:luminal irregularities PLV:luminal irregularities LV angiography: LV-Ao:no gradient LVEDP:22 mmHg Contrast used: 110 mL Fluoroscopy time: 12.2 min Medications used: Versed 0.5 Fentanyl 25 Radial cocktail heparin 2000, NTG 200, verapamil 2.5 Angiomax ASA 325mg plavix 600mg Equipment used: 6 kazakh LBU 3.5 guide Runthrough angioplasty wire 2 x 12 balloon Synergy 2.25 x 16 drug eluting stent Estimated blood loss<10 mL. Specimen: none Grafts/implants: none Complications: none Assessment: NSTEMI/CAD s/p PCI of mid LAD Smoker COPD Plan: -ASA 81mg lifelong -plavix 75mg one year MORALES PETERS Jan 13, 2017 17:50
--- NOTE | 2017-01-13 20:30 | CONS ---
Date/Time of Note Date/Time of Note DATE: 01/13/17 TIME: 20:25 Assessment/Plan Assessment/Plan Chief Complaint/Hosp Course Assessment: NSTEMI Coronary artery disease - status post PCI to mid LAD 01/13/2017 Acute kidney injury - improved with intravenous fluid hydration Chronic diastolic heart failure Hypertension Chronic obstructive pulmonary disease Tobacco use - counselled on smoking cessation Recommendations: -continue aspirin 81mg daily indefinitely, clopidogrel 75mg daily for at least one year -continue atorvastatin 40mg daily -continue carvedilol 6.25mg BID -echocardiogram showed LVEF 55-60%, grade 1 diastolic dysfunction -anticipate discharge tomorrow if remains stable Problems: Consultation Date/Type/Reason Admit Date/Time Jan 12, 2017 at 02:00 Initial Consult Date Type of Consultation: Cardiology 24 HR Interval Summary Free Text/Dictation Status post coronary angiography and PCI of mid LAD today. Detailed Summary Additional Comments 14 point review of systems without changes. Exam/Review of Systems Vital Signs Vitals Vital Signs Date Time Temp Pulse Resp B/P Pulse Ox O2 Delivery O2 Flow Rate FiO2 01/13/17 20:12 68 29 153/83 96 Nasal Cannula 01/13/17 17:47 98.0 01/13/17 07:53 2.0 Intake and Output 01/12/17 01/12/17 01/13/17 15:00 23:00 07:00 Intake Total 1000 ml Balance 1000 ml Exam Constitutional: alert, well developed Psych: nl mood/affect, no complaints Head: atraumatic, normocephalic Eyes: nl conjunctiva, nl lids ENMT: nl external ears & nose, nl nasal mucosa & septum Neck: non-tender, supple, No jvd Respiratory: diminished breath sounds, No wheezing Cardiovascular: regular rate and rhythm Gastrointestinal: non-tender, soft Musculoskeletal: nl extremities to inspection Extremities: No clubbing, No cyanosis, No edema 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: 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 intact, nl mental status Skin: nl turgor Results Result Diagram: 01/13/17 1028 01/13/17 1028 Results 24 hrs Laboratory Tests Test 01/12/17 23:10 01/13/17 10:28 Activated Partial Thromboplast Time 52.1 H 43.1 H White Blood Count 8.3 Red Blood Count 3.63 L Hemoglobin 11.9 L Hematocrit 37.3 Mean Corpuscular Volume 102.8 H Mean Corpuscular Hemoglobin 32.8 Mean Corpuscular Hemoglobin Concent 31.9 L Red Cell Distribution Width 13.0 Platelet Count 251 Mean Platelet Volume 10.7 H Neutrophils % 58.5 Lymphocytes % 27.4 Monocytes % 5.7 Eosinophils % 6.9 Basophils % 1.3 Nucleated Red Blood Cells % 0.0 Neutrophils # 4.9 Lymphocytes # 2.3 Monocytes # 0.5 Eosinophils # 0.6 H Basophils # 0.1 Nucleated Red Blood Cells # 0.0 Sodium Level 143 Potassium Level 4.0 Chloride Level 104 Carbon Dioxide Level 34 H Anion Gap 9 Blood Urea Nitrogen 17 # Creatinine 0.83 Glucose Level 84 Calcium Level 8.7 Phosphorus Level 4.1 Magnesium Level 2.0 Medications Medications Current Medications Nitroglycerin (Nitroglycerin (Sl Tab) 0.4 Mg) 1 tab Q5M PRN SL ANGINA; Start 01/12/17 at 05:00 Morphine Sulfate (morphine) 2 mg Q4H PRN IV PAIN Last administered on 04:42; Admin Dose 2 MG; Start 01/12/17 at 05:00 Morphine Sulfate (Ms Contin (Er)) 15 mg BID PO Last administered on 01/13/17 09:27; Admin Dose 15 MG; Start 01/12/17 at 09:00 Diphenhydramine HCl (Benadryl) 25 mg Q6H PRN PO ITCHING; Start 01/12/17 at 07: 30 Atorvastatin Calcium (Lipitor) 40 mg HS PO Last administered on 01/12/17 20:23 ; Admin Dose 40 MG; Start 01/12/17 at 21:00 Carvedilol (Coreg) 6.25 mg BID PO Last administered on 01/13/17 09:27; Admin Dose 6.25 MG; Start 01/12/17 at 21:00 Hydralazine HCl 25 mg 25 mg Q6 PRN PO SBP>150; Start 01/12/17 at 19:00 Sodium Chloride (NS) 1,000 ml @ 50 mls/hr Q20H IV Last administered on 15:21; Admin Dose 50 MLS/HR; Start 01/12/17 at 19:00 Senna (Senokot) 2 tab BID PO Last administered on 01/13/17 09:25; Admin Dose 2 TAB; Start 01/13/17 at 09:00 Magnesium Hydroxide (Milk Of Mag) 30 ml DAILY PRN PO CONSTIPATION; Start at 05:30 Clopidogrel Bisulfate (plaVIX) 75 mg DAILY PO ; Start 01/14/17 at 09:00 Aspirin (Aspirin) 81 mg DAILY PO ; Start 01/14/17 at 09:00 RAMON DAVENPORT MD Jan 13, 2017 20:30
[2017-01-13] MEDS: ATORVASTATIN 20 MG TAB PO SCH (21:05)
[2017-01-13] MEDS: ZOLPIDEM 5 MG TAB PO PRN (23:03)
[2017-01-14] VITALS (15 sets, daily range): BP systolic 96–150; BP diastolic 60–89; PULSE 74–121; RESP 17–20
[2017-01-14 08:43] LABS: BASOPHIL # 0.1 10^3/ul (0.0-0.1); BASOPHILS % 0.7 % (0.0-2.0); EOSINOPHILS # 0.2 10^3/ul (0.0-0.5); EOSINOPHILS % 1.9 % (0.0-7.0); HEMATOCRIT 35.3 % (37.0-47.0); HEMOGLOBIN 11.3 g/dl (12.0-16.0); LYMPHOCYTES # 1.6 10^3/ul (0.8-2.9); LYMPHOCYTES % 14.2 % (15.0-51.0); MEAN CORPUSCULAR HEMOGLOBIN 32.9 pg (29.0-33.0); MEAN CORPUSCULAR VOLUME 102.9 fl (82.0-101.0); MEAN PLATELET VOLUME 10.5 fl (7.4-10.4); MONOCYTE # 0.5 10^3/ul (0.3-0.9); NEUTROPHIL # 8.8 10^3/ul (1.6-7.5); NEUTROPHILS % 78.9 % (39.0-77.0); PLATELET COUNT 251 10^3/UL (140-415); RED BLOOD COUNT 3.43 10^6/ul (4.20-5.40); RED CELL DISTRIBUTION WIDTH 12.4 % (11.5-14.5); WHITE BLOOD COUNT 11.2 10^3/ul (4.8-10.8)
[2017-01-14 09:09] LABS: CALCIUM 8.8 mg/dl (8.4-10.2); CREATININE 0.69 mg/dl (0.44-1.00)
[2017-01-14 09:11] LABS: MAGNESIUM 1.7 mg/dl (1.7-2.5); PHOSPHORUS 4.9 mg/dl (2.5-4.9)
[2017-01-14] MEDS: morphine (ER) 15 MG TAB PO SCH ×2 (10:45→20:26)
[2017-01-14] MEDS: ASPIRIN 81 MG TAB PO SCH (10:45)
[2017-01-14] MEDS: CLOPIDOGREL 75 MG TAB PO SCH (10:46)
[2017-01-14] MEDS: SENNA TAB PO SCH ×2 (10:50→20:25)
--- NOTE | 2017-01-14 11:36 | PN ---
DATE: 01/14/2017 SUBJECTIVE: The patient is stable. No events overnight. No fevers, chills, nausea, vomiting. OBJECTIVE: VITAL SIGNS: Blood pressure is 133/81, pulse 100, respirations 19, temperature 98.4. HEENT: Head is normocephalic. NECK: Supple. HEART: Regular rate. LUNGS: Show diminished breath sounds at the base. ABDOMEN: Soft, nontender to palpation. No rebound or guarding. EXTREMITIES: Negative for clubbing, cyanosis, no edema. DERMATOLOGIC: No rashes. MUSCULOSKELETAL: No joint effusions. NEUROLOGIC: No change in exam. MEDICATIONS: The patient's medications have been reviewed. LABORATORY DATA: Has been reviewed. ASSESSMENT AND PLAN: 1. Nonoliguric acute kidney injury with unknown baseline creatinine. Etiology is secondary to hemo dynamics. Renal function has improved. Continue current treatment plan, supportive care, renally d ose all medications. 2. Mild anemia. Monitor hematocrit levels. 3. Hypertension. Continue current blood pressure regimen. 4. Mineral bone disorder. Monitor calcium and phosphorus levels. 5. Non-ST elevation myocardial infarction, status post percutaneous coronary intervention to left a nterior descending. Continue medical management and follow up with cardiology. 6. History of chronic obstructive pulmonary disease. Dictated By: JODIE TOPETE DO NR/NTS Conf#: [id number] DID#: [id number] CC: ABRIL LAND MD;*EndCC*
[2017-01-14] MEDS: morphine 2 MG INJ IV PRN (16:48)
--- NOTE | 2017-01-14 17:33 | PN ---
Date/Time of Note Date/Time of Note DATE: 01/14/17 TIME: 17:31 Assessment/Plan VTE Prophylaxis VTE Prophylaxis Intervention: SCD's Lines/Catheters IV [facility] Urinary Cath still in place: No Assessment/Plan Assessment/Plan 1. NSTEMI status post PCI to mid LAD 01/13/2017, stable, follow up with cardiology 2. Acute kidney injury - improved with intravenous fluid hydration 3. Chronic diastolic heart failure 4. Hypertension, controlled 5. Chronic obstructive pulmonary disease, stable 6. Tobacco use - counselled on smoking cessation Subjective 24 Hr Interval Summary Free Text/Dictation states pain all over, every where on the body, does not feel ready to go home today. no shortness of breath Exam/Review of Systems Vital Signs Vitals Vital Signs Date Time Temp Pulse Resp B/P Pulse Ox O2 Delivery O2 Flow Rate FiO2 01/14/17 16:40 112/79 01/14/17 16:18 83 01/14/17 15:46 97.0 17 95 01/13/17 20:12 Nasal Cannula 01/13/17 07:53 2.0 Intake and Output 01/13/17 01/13/17 01/14/17 15:00 23:00 07:00 Intake Total 800 ml 123 ml 350 ml Balance 800 ml 123 ml 350 ml Exam Constitutional: alert, oriented, well developed Psych: nl mood/affect, no complaints Head: atraumatic, normocephalic Eyes: EOMI, PERRL, nl conjunctiva, nl lids, nl sclera ENMT: nl external ears & nose, nl lips & teeth, nl nasal mucosa & septum Neck: non-tender, supple Respiratory: clear to auscultation, normal air movement, No congested cough, No crackles/rales, No diminished breath sounds, No intercostal retraction, No labored breathing, No other, No respirations, No tactile fremitus, No wheezing Cardiovascular: nl pulses, regular rate and rhythm, No S3, No S4, No bruits, No diastolic murmur, No edema, No gallop, No irregular rhythm, No jugular venous distention (JVD), No murmurs/extra sounds, No other, No rub, No systolic murmur Gastrointestinal: nl liver, spleen, non-tender, soft Musculoskeletal: nl extremities to inspection Extremities: normal pulses, No calf tenderness, No clubbing, No cyanosis, No edema, No other, No palpable cord, No pitting pedal edema, No tenderness 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: 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 II-XII intact, nl mental status, nl speech, nl strength Results Result Diagram: 01/14/17 0738 01/14/17 0738 Results 24 hrs Laboratory Tests Test 01/14/17 07:38 White Blood Count 11.2 #H Red Blood Count 3.43 L Hemoglobin 11.3 L Hematocrit 35.3 L Mean Corpuscular Volume 102.9 H Mean Corpuscular Hemoglobin 32.9 Mean Corpuscular Hemoglobin Concent 32.0 Red Cell Distribution Width 12.4 Platelet Count 251 Mean Platelet Volume 10.5 H Neutrophils % 78.9 H Lymphocytes % 14.2 L Monocytes % 4.0 Eosinophils % 1.9 Basophils % 0.7 Nucleated Red Blood Cells % 0.0 Neutrophils # 8.8 H Lymphocytes # 1.6 Monocytes # 0.5 Eosinophils # 0.2 Basophils # 0.1 Nucleated Red Blood Cells # 0.0 Sodium Level 143 Potassium Level 4.0 Chloride Level 106 Carbon Dioxide Level 32 H Anion Gap 9 Blood Urea Nitrogen 11 Creatinine 0.69 Glucose Level 104 Calcium Level 8.8 Phosphorus Level 4.9 Magnesium Level 1.7 Medications Medications Current Medications Nitroglycerin (Nitroglycerin (Sl Tab) 0.4 Mg) 1 tab Q5M PRN SL ANGINA; Start 01/12/17 at 05:00 Morphine Sulfate (morphine) 2 mg Q4H PRN IV PAIN Last administered on 16:48; Admin Dose 2 MG; Start 01/12/17 at 05:00 Morphine Sulfate (Ms Contin (Er)) 15 mg BID PO Last administered on 01/14/17 10:45; Admin Dose 15 MG; Start 01/12/17 at 09:00 Diphenhydramine HCl (Benadryl) 25 mg Q6H PRN PO ITCHING; Start 01/12/17 at 07: 30 Atorvastatin Calcium (Lipitor) 40 mg HS PO Last administered on 01/13/17 21:05 ; Admin Dose 40 MG; Start 01/12/17 at 21:00 Carvedilol (Coreg) 6.25 mg BID PO Last administered on 01/14/17 10:46; Admin Dose 6.25 MG; Start 01/12/17 at 21:00 Hydralazine HCl 25 mg 25 mg Q6 PRN PO SBP>150; Start 01/12/17 at 19:00 Sodium Chloride (NS) 1,000 ml @ 50 mls/hr Q20H IV Last administered on 21:07; Admin Dose 50 MLS/HR; Start 01/12/17 at 19:00 Senna (Senokot) 2 tab BID PO Last administered on 01/13/17 09:25; Admin Dose 2 TAB; Start 01/13/17 at 09:00 Magnesium Hydroxide (Milk Of Mag) 30 ml DAILY PRN PO CONSTIPATION; Start at 05:30 Clopidogrel Bisulfate (plaVIX) 75 mg DAILY PO Last administered on 01/14/17 10 :46; Admin Dose 75 MG; Start 01/14/17 at 09:00 Aspirin (Aspirin) 81 mg DAILY PO Last administered on 01/14/17 10:45; Admin Dose 81 MG; Start 01/14/17 at 09:00 Zolpidem Tartrate (Ambien) 10 mg HS PRN PO INSOMNIA Last administered on 23:03; Admin Dose 10 MG; Start 01/13/17 at 23:00 NORMA BOWLES MD Jan 14, 2017 17:33
--- NOTE | 2017-01-14 19:14 | CONS ---
Date/Time of Note Date/Time of Note DATE: 01/14/17 TIME: 19:13 Assessment/Plan Assessment/Plan Chief Complaint/Hosp Course Assessment: NSTEMI Coronary artery disease - status post PCI to mid LAD 01/13/2017 Acute kidney injury - improved with intravenous fluid hydration Chronic diastolic heart failure Hypertension Chronic obstructive pulmonary disease Tobacco use - counselled on smoking cessation Recommendations: -continue aspirin 81mg daily indefinitely, clopidogrel 75mg daily for at least one year -continue atorvastatin 40mg daily -continue carvedilol 6.25mg BID -echocardiogram showed LVEF 55-60%, grade 1 diastolic dysfunction -anticipate discharge tomorrow if remains stable Problems: Consultation Date/Type/Reason Admit Date/Time Jan 12, 2017 at 02:00 Type of Consultation: Cardiology 24 HR Interval Summary Free Text/Dictation No acute events. Right radial access site intact. Detailed Summary Additional Comments 14 point review of systems without changes. Exam/Review of Systems Vital Signs Vitals Vital Signs Date Time Temp Pulse Resp B/P Pulse Ox O2 Delivery O2 Flow Rate FiO2 01/14/17 16:40 112/79 01/14/17 16:18 83 01/14/17 15:46 97.0 17 95 01/13/17 20:12 Nasal Cannula 01/13/17 07:53 2.0 Intake and Output 01/13/17 01/13/17 01/14/17 15:00 23:00 07:00 Intake Total 800 ml 123 ml 350 ml Balance 800 ml 123 ml 350 ml Exam Constitutional: alert, well developed Psych: nl mood/affect, no complaints Head: atraumatic, normocephalic Eyes: nl conjunctiva, nl lids ENMT: nl external ears & nose, nl nasal mucosa & septum Neck: non-tender, supple, No jvd Respiratory: diminished breath sounds, No wheezing Cardiovascular: regular rate and rhythm Gastrointestinal: non-tender, soft Musculoskeletal: nl extremities to inspection Extremities: No clubbing, No cyanosis, No edema 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: 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-XII intact, nl mental status Skin: nl turgor Results Result Diagram: 01/14/17 0738 01/14/17 0738 Results 24 hrs Laboratory Tests Test 01/14/17 07:38 White Blood Count 11.2 #H Red Blood Count 3.43 L Hemoglobin 11.3 L Hematocrit 35.3 L Mean Corpuscular Volume 102.9 H Mean Corpuscular Hemoglobin 32.9 Mean Corpuscular Hemoglobin Concent 32.0 Red Cell Distribution Width 12.4 Platelet Count 251 Mean Platelet Volume 10.5 H Neutrophils % 78.9 H Lymphocytes % 14.2 L Monocytes % 4.0 Eosinophils % 1.9 Basophils % 0.7 Nucleated Red Blood Cells % 0.0 Neutrophils # 8.8 H Lymphocytes # 1.6 Monocytes # 0.5 Eosinophils # 0.2 Basophils # 0.1 Nucleated Red Blood Cells # 0.0 Sodium Level 143 Potassium Level 4.0 Chloride Level 106 Carbon Dioxide Level 32 H Anion Gap 9 Blood Urea Nitrogen 11 Creatinine 0.69 Glucose Level 104 Calcium Level 8.8 Phosphorus Level 4.9 Magnesium Level 1.7 Medications Medications Current Medications Nitroglycerin (Nitroglycerin (Sl Tab) 0.4 Mg) 1 tab Q5M PRN SL ANGINA; Start 01/12/17 at 05:00 Morphine Sulfate (morphine) 2 mg Q4H PRN IV PAIN Last administered on 16:48; Admin Dose 2 MG; Start 01/12/17 at 05:00 Morphine Sulfate (Ms Contin (Er)) 15 mg BID PO Last administered on 01/14/17 10:45; Admin Dose 15 MG; Start 01/12/17 at 09:00 Diphenhydramine HCl (Benadryl) 25 mg Q6H PRN PO ITCHING; Start 01/12/17 at 07: 30 Atorvastatin Calcium (Lipitor) 40 mg HS PO Last administered on 01/13/17 21:05 ; Admin Dose 40 MG; Start 01/12/17 at 21:00 Carvedilol (Coreg) 6.25 mg BID PO Last administered on 01/14/17 10:46; Admin Dose 6.25 MG; Start 01/12/17 at 21:00 Hydralazine HCl (Apresoline) 25 mg Q6 PRN PO SBP>150; Start 01/12/17 at 19:00 Senna (Senokot) 2 tab BID PO Last administered on 01/13/17 09:25; Admin Dose 2 TAB; Start 01/13/17 at 09:00 Magnesium Hydroxide (Milk Of Mag) 30 ml DAILY PRN PO CONSTIPATION; Start at 05:30 Clopidogrel Bisulfate (plaVIX) 75 mg DAILY PO Last administered on 01/14/17 10 :46; Admin Dose 75 MG; Start 01/14/17 at 09:00 Aspirin (Aspirin) 81 mg DAILY PO Last administered on 01/14/17 10:45; Admin Dose 81 MG; Start 01/14/17 at 09:00 Zolpidem Tartrate (Ambien) 10 mg HS PRN PO INSOMNIA Last administered on 23:03; Admin Dose 10 MG; Start 01/13/17 at 23:00 RAMON DAVENPORT MD Jan 14, 2017 19:14
[2017-01-14] MEDS: ATORVASTATIN 20 MG TAB PO SCH (20:25)
[2017-01-14] MEDS: ZOLPIDEM 5 MG TAB PO PRN (20:26)
[2017-01-15] VITALS (8 sets, daily range): BP systolic 115–149; BP diastolic 61–81; PULSE 68–86; RESP 18–21
[2017-01-15] MEDS: morphine 2 MG INJ IV PRN (00:33)
[2017-01-15 07:22] LABS: BASOPHIL # 0.1 10^3/ul (0.0-0.1); BASOPHILS % 1.1 % (0.0-2.0); EOSINOPHILS # 0.3 10^3/ul (0.0-0.5); EOSINOPHILS % 3.8 % (0.0-7.0); HEMATOCRIT 35.5 % (37.0-47.0); HEMOGLOBIN 11.4 g/dl (12.0-16.0); LYMPHOCYTES # 1.6 10^3/ul (0.8-2.9); LYMPHOCYTES % 19.5 % (15.0-51.0); MEAN CORPUSCULAR HEMOGLOBIN 32.8 pg (29.0-33.0); MEAN CORPUSCULAR HGB CONC 32.1 g/dl (32.0-37.0); MEAN PLATELET VOLUME 10.3 fl (7.4-10.4); MONOCYTE # 0.5 10^3/ul (0.3-0.9); MONOCYTES % 5.5 % (0.0-11.0); NEUTROPHIL # 5.8 10^3/ul (1.6-7.5); NEUTROPHILS % 69.6 % (39.0-77.0); PLATELET COUNT 224 10^3/UL (140-415); RED BLOOD COUNT 3.48 10^6/ul (4.20-5.40); RED CELL DISTRIBUTION WIDTH 12.3 % (11.5-14.5); WHITE BLOOD COUNT 8.4 10^3/ul (4.8-10.8)
[2017-01-15 08:01] LABS: CALCIUM 8.6 mg/dl (8.4-10.2); CREATININE 0.63 mg/dl (0.44-1.00); POTASSIUM 3.8 mmol/L (3.5-5.1)
[2017-01-15] MEDS: ASPIRIN 81 MG TAB PO SCH (08:43)
[2017-01-15] MEDS: CLOPIDOGREL 75 MG TAB PO SCH (08:43)
[2017-01-15] MEDS: morphine (ER) 15 MG TAB PO SCH ×2 (08:44→09:29)
[2017-01-15] MEDS: SENNA TAB PO SCH (08:44)
[2017-01-15] MEDS ORDERED: SENN-53 PO (09:18)
[2017-01-15] MEDS ORDERED: CLOP75TA28 PO (09:18)
[2017-01-15] MEDS ORDERED: CARV6.2579 PO (09:18)
[2017-01-15] MEDS ORDERED: ASPI81TA3 PO (09:18)
--- NOTE | 2017-01-15 09:33 | PDOCDIS ---
Discharge Instructions DIAGNOSIS Discharge Diagnosis 1. Non-ST elevated myocardial infarction 2. Coronary artery disease status post PCI 3. Acute renal insufficiency 4. Chronic diastolic heart failure 5. Essential hypertension 6. History of COPD 7. Cigarette smoking CONDITION Patient Condition: Stable HOME CARE INSTRUCTIONS: Special Diet: cardiac FOLLOW UP/APPOINTMENTS Follow-up Plan 1. Follow-up with Dr. Jerry Lynch within a week OTHER ORDERS: Other Orders: 1. Stop smoking cigarettes ARCADIO CORREA Jan 15, 2017 09:33
--- NOTE | 2017-01-15 09:56 | CONS ---
Date/Time of Note Date/Time of Note DATE: 01/15/17 TIME: 09:55 Consult Date/Type/Reason Admit Date/Time Jan 12, 2017 at 02:00 Initial Consult Date Type of Consultation: Cardiology Subjective all noted good uop Objective Vital Signs Date Time Temp Pulse Resp B/P Pulse Ox O2 Delivery O2 Flow Rate FiO2 01/15/17 08:08 98.0 78 18 115/61 98 01/13/17 20:12 Nasal Cannula 01/13/17 07:53 2.0 Intake and Output 01/14/17 01/14/17 01/15/17 14:59 22:59 06:59 Intake Total 1200 ml 120 ml Balance 1200 ml 120 ml Results/Medications Result Diagram: 01/15/17 0654 01/15/17 0654 Results 24 hrs Laboratory Tests Test 01/15/17 06:54 White Blood Count 8.4 # Red Blood Count 3.48 L Hemoglobin 11.4 L Hematocrit 35.5 L Mean Corpuscular Volume 102.0 H Mean Corpuscular Hemoglobin 32.8 Mean Corpuscular Hemoglobin Concent 32.1 Red Cell Distribution Width 12.3 Platelet Count 224 Mean Platelet Volume 10.3 Neutrophils % 69.6 Lymphocytes % 19.5 Monocytes % 5.5 Eosinophils % 3.8 Basophils % 1.1 Nucleated Red Blood Cells % 0.0 Neutrophils # 5.8 Lymphocytes # 1.6 Monocytes # 0.5 Eosinophils # 0.3 Basophils # 0.1 Nucleated Red Blood Cells # 0.0 Sodium Level 139 Potassium Level 3.8 Chloride Level 104 Carbon Dioxide Level 31 Anion Gap 8 Blood Urea Nitrogen 11 Creatinine 0.63 Glucose Level 101 Calcium Level 8.6 Medications Current Medications Nitroglycerin (Nitroglycerin (Sl Tab) 0.4 Mg) 1 tab Q5M PRN SL ANGINA; Start 01/12/17 at 05:00 Morphine Sulfate (morphine) 2 mg Q4H PRN IV PAIN Last administered on 00:33; Admin Dose 2 MG; Start 01/12/17 at 05:00 Morphine Sulfate (Ms Contin (Er)) 15 mg BID PO Last administered on 01/15/17 08:44; Admin Dose 15 MG; Start 01/12/17 at 09:00 Diphenhydramine HCl (Benadryl) 25 mg Q6H PRN PO ITCHING; Start 01/12/17 at 07: 30 Atorvastatin Calcium (Lipitor) 40 mg HS PO Last administered on 01/14/17 20:25 ; Admin Dose 40 MG; Start 01/12/17 at 21:00 Carvedilol (Coreg) 6.25 mg BID PO Last administered on 01/15/17 08:43; Admin Dose 6.25 MG; Start 01/12/17 at 21:00 Hydralazine HCl (Apresoline) 25 mg Q6 PRN PO SBP>150; Start 01/12/17 at 19:00 Senna (Senokot) 2 tab BID PO Last administered on 01/15/17 08:44; Admin Dose 2 TAB; Start 01/13/17 at 09:00 Magnesium Hydroxide (Milk Of Mag) 30 ml DAILY PRN PO CONSTIPATION; Start at 05:30 Clopidogrel Bisulfate (plaVIX) 75 mg DAILY PO Last administered on 01/15/17 08 :43; Admin Dose 75 MG; Start 01/14/17 at 09:00 Aspirin (Aspirin) 81 mg DAILY PO Last administered on 01/15/17 08:43; Admin Dose 81 MG; Start 01/14/17 at 09:00 Zolpidem Tartrate (Ambien) 10 mg HS PRN PO INSOMNIA Last administered on 20:26; Admin Dose 10 MG; Start 01/13/17 at 23:00 Assessment/Plan Chief Complaint/Hosp Course 1. Nonoliguric acute kidney injury with unknown baseline creatinine. Etiology is secondary to hemodynamics. Renal function has improved. Continue current treatment plan, supportive care, renally dose all medications. 2. Mild anemia. Monitor hematocrit levels. 3. Hypertension. Continue current blood pressure regimen. 4. Mineral bone disorder. Monitor calcium and phosphorus levels. 5. Non-ST elevation myocardial infarction, status post percutaneous coronary intervention to left anterior descending. Continue medical management and follow up with cardiology. 6. History of chronic obstructive pulmonary disease. Problems: AYAKA GRANT MD Jan 15, 2017 09:56
== END 2017-01-15 17:48 | disposition home or self-care (01) | DRG 247 ==
LOC: E/R 23:26 → MS4 01-12 02:00
PROVIDERS: ADMIT Internal Medicine; ATTEND Internal Medicine
PROC: 02703ZZ Dilation of Coronary Artery, One Artery, Percutaneous Approach (ICD-10-PCS; 2017-01-13)
PROC: B2161ZZ Fluoroscopy of Right and Left Heart using Low Osmolar Contrast (ICD-10-PCS; 2017-01-13)
PROC: 4A023N7 Measurement of Cardiac Sampling and Pressure, Left Heart, Percutaneous Approach (ICD-10-PCS; principal; 2017-01-13 13:30)
PROC: 027034Z Dilation of Coronary Artery, One Artery with Drug-eluting Intraluminal Device, Percutaneous Approach (ICD-10-PCS; 2017-01-13 13:30)
DX: I21.4 Non-ST elevation (NSTEMI) myocardial infarction (principal); N17.9 Acute kidney failure, unspecified; I11.0 Hypertensive heart disease with heart failure; I50.32 Chronic diastolic (congestive) heart failure; I25.10 Atherosclerotic heart disease of native coronary artery without angina pectoris; Z72.0 Tobacco use; D64.9 Anemia, unspecified; J44.9 Chronic obstructive pulmonary disease, unspecified; F17.200 Nicotine dependence, unspecified, uncomplicated
CPT/HCPCS: 36415; 71010; 80048; 80053; 83036; 83735; 83880; 84100; 84484; 85025; 85610; 85730; 93005; 93306; 93458; 96374; 96375; C1725; C1874; C1887; C9600; J0360; J0583; J1644; J2250; J2270; J2405; J3010; J7030; J7040; Q9967

== ENCOUNTER 2018-09-07 21:29 | Inpatient (IN) | payer OTHER ==
[~2018-09-07] VITALS: Ht 165.1 cm; Wt 48.6 kg
[~2018-09-07 21:29] MED LIST changes: +AMIT50TA3 PO; +ASPI-831 PO; +CARV6.2579 PO; +CLOP75TA28 PO; +FURO20TA3 PO; +IBUP-1544 PO; +IBUP200C11 PO; +LISI10TA2 PO; +PANT40TA4 PO; +SENN-120 PO
--- NOTE | 2018-09-07 23:18 | ERD ---
ER Documentation Chief Complaint Chief Complaint BIBA FROM HOME C/O 08/16 NON RADIATING CP IMPROVED BY [facility] FROM EMS NSR ECG HPI This is a 63-year-old woman complaining of pressure-like chest discomfort since last night, intermittent lasting for a few hours and then resolving spontaneously, she also complains of shortness of breath. Patient does have a history of CAD and prior [place], EMS administered aspirin and nitroglycerin en route and transported her here. Patient denies recent cough, no fevers or chills, no calf or leg swelling. ROS All systems reviewed and are negative except as per history of present illness. Medications Home Meds Active Scripts Sennosides* (Senna Lax*) 8.6 Mg Tablet, 2 TAB PO BID PRN for CONSTIPATION, #30 TAB Prov:ARCADIO CORREA NP 01/15/17 Clopidogrel Bisulfate (Clopidogrel) 75 Mg Tablet, 75 MG PO DAILY, #90 TAB Prov:ARCADIO CORREA NP 01/15/17 Carvedilol* (Carvedilol*) 6.25 Mg Tablet, 6.25 MG PO BID, #60 TAB Prov:ARCADIO CORREA NP 01/15/17 Aspirin (Aspirin) 81 Mg Chew, 81 MG PO DAILY, #90 TAB Prov:ARCADIO CORREA NP 01/15/17 Oxycodone HCl/Acetaminophen (Percocet 5-325 mg Tablet) 1 Each Tablet, 1 EACH PO TID for PAIN, #15 TAB Prov:KELLEE RAHMAN MD 01/25/16 Allergies Allergies: Coded Allergies: No Known Drug Allergies (Verified Allergy, Unknown, 01/25/16) PMhx/Soc History of non-STEMI, CAD status post PCI with stent to the mid LAD, renal insufficiency, CHF, hypertension, COPD Anesthesia Reaction: No Hx 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 Disorder: No Hx Respiratory Disorders: Yes (COPD) Hx Cardiac Disorders: Yes (HTN) Hx Psychiatric Problems: No Hx Miscellaneous Medical Probl: No Hx Alcohol Use: Yes (once a week more or lessm- shots) Hx Substance Use: No Hx Tobacco Use: No FmHx Family History: No diabetes Physical Exam Vitals Vital Signs Date Temp Pulse Resp B/P (MAP) Pulse Ox O2 O2 Flow FiO2 Time Delivery Rate 09/07/18 76 16 95 21 23:34 09/07/18 97.8 86 18 101/73 96 21:43 (82) Physical Exam Const: No acute distress, well-developed well-nourished, afebrile Resp: Scattered wheezes bilaterally, no crackles or stridor Cardio: Regular rate and rhythm, no murmurs Abd: Soft, non tender, non distended. Normal bowel sounds Skin: No petechiae or rashes, no lacerations or hematomas Back: No midline or flank tenderness Ext: No cyanosis, or edema, calves symmetrical, distal pulses equal bilateral Neur: Awake and alert x3, no focal deficits or facial asymmetry Psych: Normal Mood and Affect Result Diagram: 09/07/18 2330 09/07/182329 Results 24 hrs Laboratory Tests Test 09/07/18 23:30 White Blood Count 7.7 10^3/ul Red Blood Count 3.68 10^6/ul Hemoglobin 11.5 g/dl Hematocrit 36.6 % Mean Corpuscular Volume 99.5 fl Mean Corpuscular Hemoglobin 31.3 pg Mean Corpuscular Hemoglobin Concent 31.4 g/dl Red Cell Distribution Width 13.4 % Platelet Count 298 10^3/UL Mean Platelet Volume 10.0 fl Immature Granulocytes % 0.300 % Neutrophils % 66.9 % Lymphocytes % 19.6 % Monocytes % 7.3 % Eosinophils % 4.7 % Basophils % 1.2 % Nucleated Red Blood Cells % 0.0 /100WBC Immature Granulocytes # 0.020 10^3/ul Neutrophils # 5.2 10^3/ul Lymphocytes # 1.5 10^3/ul Monocytes # 0.6 10^3/ul Eosinophils # 0.4 10^3/ul Basophils # 0.1 10^3/ul Nucleated Red Blood Cells # 0.0 10^3/ul Sodium Level 139 mmol/L Potassium Level 3.6 mmol/L Chloride Level 95 mmol/L Carbon Dioxide Level 33 mmol/L Anion Gap 11 Blood Urea Nitrogen 43 mg/dl Creatinine 2.45 mg/dl Est Glomerular Filtrat Rate mL/min 20 mL/min Glucose Level 89 mg/dl Calcium Level 9.1 mg/dl Total Bilirubin 0.1 mg/dl Direct Bilirubin 0.00 mg/dl Indirect Bilirubin 0.1 mg/dl Aspartate Amino Transf (AST/SGOT) 18 IU/L Alanine Aminotransferase (ALT/SGPT) 14 IU/L Alkaline Phosphatase 83 IU/L Troponin I < 0.012 ng/ml B-Type Natriuretic Peptide 435 PG/ML Total Protein 6.6 g/dl Albumin 3.9 g/dl Globulin 2.70 g/dl Albumin/Globulin Ratio 1.44 Lipase 35 U/L Current Medications Medications Dose Sig/Lorena Start Time Status Last (Trade) Ordered Route PRN Stop Time Admin Dose Reason Admin Albuterol 10 mg ONCE STAT 09/07/18 DC 09/07/18 (Proventil INH 23:21 09/07/18 23:33 0.5% (Neb)) 23:23 Ipratropium 1 mg ONCE STAT 09/07/18 DC 09/07/18 [place] INH 23:21 09/07/18 23:34 (Atrovent 23:23 0.02% (Neb)) 125 mg ONCE STAT 09/07/18 DC 09/07/18 Methylprednis IV 23:21 09/07/18 23:53 olone Sodium 23:23 Succinate (Solu-Medrol) Sodium 1,000 ml @ Q1H STAT 09/07/18 DC 09/07/18 Chloride 1,000 mls/hr IV 23:21 09/08/18 23:54 00:20 Ketorolac 15 mg ONCE STAT 09/07/18 DC 09/07/18 Tromethamine IV 23:21 09/07/18 23:53 (Toradol) 23:23 650 mg ONCE ONCE 09/08/18 DC 09/08/18 Acetaminophen PO 02:00 09/08/18 02:05 (Tylenol 02:01 Tab) Procedures/MDM IV line was established patient was placed on reimbursement consultant rhythm strip revealed a sinus rhythm at about 80 bpm with upright P and T waves. Patient was afebrile EKG performed, read by me revealed a normal sinus rhythm 85 bpm, normal axis, narrow QRS complex, no concerning ST elevations or depressions noted I administered 1 L normal saline IV for dehydration, Toradol 15 mg IV, albuterol 10 mg via nebulizer, ipratropium 1 mg via nebulizer, methylprednisolone 125 mg IV CBC was unremarkable, electrolytes revealed dehydration and renal insufficiency with a BUN/creatinine of 43/2.5, liver function tests were normal, troponin was negative, BNP was low Patient was already treated with aspirin and at this time has no chest pain although given her history and complaints today she will be admitted to telemetry setting for continued medical management and cardiology consultation. Departure Diagnosis: Primary Impression: Chest pain Chest pain type: unspecified Qualified Codes: R07.9 - Chest pain, unspecified Additional Impressions: Acute exacerbation of chronic obstructive pulmonary disease (COPD) Acute on chronic renal failure Acute renal failure type: unspecified Chronic kidney disease stage: stage 3 (moderate) Qualified Codes: N17.9 - Acute kidney failure, unspecified; N18.3 - Chronic kidney disease, stage 3 (moderate) Condition: KELLEE Tsang MD Sep 07, 2018 23:18
[2018-09-07] MEDS ORDERED: IPRATROPIUM (NEB) 0.5 MG/2.5 ML AMP INH STA (23:21)
[2018-09-07] MEDS ORDERED: METHYLPREDNISOLONE 125 MG INJ IV STA (23:21)
[2018-09-07] MEDS ORDERED: ALBUTEROL 0.5% (NEB) 2.5 MG/0.5 ML AMP INH STA (23:21)
[2018-09-07] MEDS ORDERED: SOD CHLORIDE 0.9% 1,000 ML IV STA (23:21)
[2018-09-07] MEDS ORDERED: KETOROLAC 15 MG INJ IV STA (23:21)
[2018-09-08] MEDS ORDERED: ACETAMINOPHEN 325 MG TAB PO ONE (02:00)
[2018-09-08] MEDS ORDERED: ALBUTEROL 0.5% (NEB) 2.5 MG/0.5 ML AMP INH STA (03:54)
[2018-09-08] MEDS: morphine 2 MG INJ IV PRN ×2 (07:29→13:48)
[2018-09-08 08:01] VITALS: Ht 165.1 cm; Wt 48.6 kg
[2018-09-08 11:17] VITALS: BP 144/83; PULSE 79; RESP 20
[2018-09-08 11:38] VITALS: BP 110/71; PULSE 75; RESP 20
--- NOTE | 2018-09-08 14:37 | HP ---
Date/Time of Note Date/Time of Note DATE: 09/08/18 TIME: 14:35 Assessment/Plan VTE Prophylaxis Pharmacological prophylaxis: LMWH Lines/Catheters IV Catheter Type (from Nrs): Saline Lock Assessment/Plan Hospital Course 1) chest pain - rule out acute coronary syndrome - try PPI - monitor clinically 2) hypertension - continue home meds Result Diagram: 09/07/18 2330 09/07/18 2330 Results 24hrs Laboratory Tests Test 09/07/18 23:30 White Blood Count 7.7 Red Blood Count 3.68 L Hemoglobin 11.5 L Hematocrit 36.6 L Mean Corpuscular Volume 99.5 Mean Corpuscular Hemoglobin 31.3 Mean Corpuscular Hemoglobin Concent 31.4 L Red Cell Distribution Width 13.4 Platelet Count 298 # Mean Platelet Volume 10.0 Immature Granulocytes % 0.300 Neutrophils % 66.9 Lymphocytes % 19.6 Monocytes % 7.3 Eosinophils % 4.7 Basophils % 1.2 Nucleated Red Blood Cells % 0.0 Immature Granulocytes # 0.020 Neutrophils # 5.2 Lymphocytes # 1.5 Monocytes # 0.6 Eosinophils # 0.4 Basophils # 0.1 Nucleated Red Blood Cells # 0.0 Urine Color YELLOW Urine Clarity SLIGHTLY CLOUDY A Urine pH 5.0 Urine Specific [place] 1.011 Urine Ketones NEGATIVE Urine Nitrite NEGATIVE Urine Bilirubin NEGATIVE Urine Urobilinogen NEGATIVE Urine Leukocyte Esterase NEGATIVE Urine Microscopic RBC 0 Urine Microscopic WBC 7 H Urine Bacteria FEW A Urine Hemoglobin NEGATIVE Urine Glucose NEGATIVE Urine Total Protein NEGATIVE Sodium Level 139 Potassium Level 3.6 Chloride Level 95 L Carbon Dioxide Level 33 H Anion Gap 11 Blood Urea Nitrogen 43 H Creatinine 2.45 H Est Glomerular Filtrat Rate mL/min 20 L Glucose Level 89 Calcium Level 9.1 Total Bilirubin 0.1 L Direct Bilirubin 0.00 Indirect Bilirubin 0.1 Aspartate Amino Transf (AST/SGOT) 18 Alanine Aminotransferase (ALT/SGPT) 14 Alkaline Phosphatase 83 Troponin I < 0.012 B-Type Natriuretic Peptide 435 H Total Protein 6.6 Albumin 3.9 Globulin 2.70 Albumin/Globulin Ratio 1.44 Lipase 35 HPI/ROS Admit Date/Time Admit Date/Time Sep 08, 2018 at 05:32 Hx of Present Illness Patient with hypertension, coronary artery disease comes in with 3 days of chest pain that seems to be continuously and may be worsened with eating. Patient has a history of coronary artery disease and had stent placement in the past. Patient currently still has chest pain. PMH/Family/Social Past Medical History Medical History: coronary artery disease, hypertension Medications Current Medications Morphine Sulfate (morphine) 2 mg Q4H PRN IV SEVERE PAIN Last administered on 09/08/18at 13:48; Admin Dose 2 MG; Start 09/08/18 at 07:30 Enoxaparin Sodium (Lovenox) 30 mg DAILY SC ; Start 09/09/18 at 09:00 Coded Allergies: No Known Drug Allergies (Unverified Allergy, Unknown, 09/08/18) Past Surgical History Past Surgical Hx: appendectomy, other Family History Significant Family History: heart disease Social History Smoking Status: Never smoker Exam/Review of Systems Vital Signs Vitals Vital Signs Date Temp Pulse Resp B/P (MAP) Pulse Ox O2 O2 Flow FiO2 Time Delivery Rate 09/08/18 97.4 75 20 110/71 97 Room Air 11:38 (84) 09/08/18 2.0 06:14 09/07/18 21 23:34 Exam Constitutional: well developed Head: normocephalic, atraumatic Neck: supple Respiratory: diminished breath sounds Cardiovascular: regular rate and rhythm Gastrointestinal: soft, non-tender Extremities: normal pulses GERALD DAILY Sep 08, 2018 14:37
[2018-09-08 14:59] VITALS: BP 138/88; PULSE 90; RESP 18
[2018-09-08] MEDS ORDERED: IBUPROFEN 200 MG TAB PO PRN (15:00)
[2018-09-08 20:00] VITALS: BP 132/86; PULSE 88; RESP 18
[2018-09-08] MEDS: IBUPROFEN 800 MG TAB PO SCH (21:08)
[2018-09-08] MEDS: AMITRIPTYLINE 50 MG TAB PO SCH (21:08)
[2018-09-09] VITALS (7 sets, daily range): BP systolic 108–158; BP diastolic 67–92; PULSE 66–80; RESP 16–20
[2018-09-09] MEDS: PANTOPRAZOLE (EC) 40 MG TAB PO SCH (05:46)
[2018-09-09] MEDS: IBUPROFEN 800 MG TAB PO SCH ×2 (08:47→21:19)
[2018-09-09] MEDS: CLOPIDOGREL 75 MG TAB PO SCH (08:47)
[2018-09-09] MEDS: LISINOPRIL 10 MG TAB PO SCH (08:47)
[2018-09-09] MEDS: FUROSEMIDE 20 MG TAB PO SCH (08:48)
[2018-09-09] MEDS: ASPIRIN 81 MG TAB PO SCH (08:48)
[2018-09-09] MEDS: ENOXAPARIN 30 MG/0.3 ML SYG SC SCH (09:09)
--- NOTE | 2018-09-09 11:48 | PN ---
Date/Time of Note Date/Time of Note DATE: 09/09/18 TIME: 11:47 Assessment/Plan VTE Prophylaxis Risk score (from Ns)>0 risk: 5 SCD applied (from Ns): No SCD contraindicated: other Pharmacological prophylaxis: LMWH Lines/Catheters IV Catheter Type (from Nrs): Peripheral IV Urinary Cath still in place: No Assessment/Plan Hospital Course 1) chest pain - troponins are negative, order 2D echo - continue PPI, add MOM - consult cardiology 2) hypertension - continue home meds Result Diagram: 09/07/18 2330 09/07/18 2330 Results 24hrs Laboratory Tests Test 09/08/18 18:02 09/09/18 00:46 09/09/18 06:40 Troponin I < 0.012 < 0.012 0.016 Subjective 24 Hr Interval Summary Free Text/Dictation Patient still has chest pain but is better compared to yesterday. Exam/Review of Systems Exam Vitals Vital Signs Date Temp Pulse Resp B/P (MAP) Pulse Ox O2 O2 Flow FiO2 Time Delivery Rate 09/09/18 98.5 73 20 141/82 93 Room Air 11:22 (101) 09/08/18 2.0 06:14 09/07/18 21 23:34 Intake and Output 09/08/18 09/08/18 09/09/18 1515:00 23:00 07:00 IntakeIntake Total 0 ml 700 ml 300 ml OutputOutput Total 4 ml BalanceBalance 0 ml 696 ml 300 ml Constitutional: well developed Head: normocephalic, atraumatic Neck: supple Respiratory: diminished breath sounds Cardiovascular: regular rate and rhythm Gastrointestinal: soft, non-tender Extremities: normal pulses Results Results 24hrs Laboratory Tests Test 09/08/18 18:02 09/09/18 00:46 09/09/18 06:40 Troponin I < 0.012 < 0.012 0.016 Medications Medication Current Medications Morphine Sulfate (morphine) 2 mg Q4H PRN IV SEVERE PAIN Last administered on 09/08/18at 13:48; Admin Dose 2 MG; Start 09/08/18 at 07:30 Enoxaparin Sodium (Lovenox) 30 mg DAILY SC Last administered on 09/09/18at 09:09; Admin Dose 30 MG; Start 09/09/18 at 09:00 Amitriptyline HCl (Elavil) 50 mg QHS PO Last administered on 09/08/18 21:08; Admin Dose 50 MG; Start 09/08/18 at 21:00 Aspirin (Aspirin) 81 mg DAILY PO Last administered on 09/09/18 08:48; Admin Dose 81 MG; Start 09/09/18 at 09:00 Clopidogrel Bisulfate (plaVIX) 75 mg DAILY PO Last administered on 09/09/18 08:47; Admin Dose 75 MG; Start 09/09/18 at 09:00 Furosemide (Lasix) 20 mg QAM PO Last administered on 09/09/18 08:48; Admin Dose 20 MG; Start 09/09/18 at 09:00 Ibuprofen (Motrin) 800 mg BID PO Last administered on 09/09/18 08:47; Admin Dose 800 MG; Start 09/08/18 at 21:00 Ibuprofen (Motrin) 200 mg Q6H PRN PO PAIN Last administered on 09/09/18 06:57; Admin Dose 200 MG; Start 09/08/18 at 15:00 Lisinopril (Zestril) 10 mg DAILY PO Last administered on 09/09/18 08:47; Admin Dose 10 MG; Start 09/09/18 at 09:00 Pantoprazole (Protonix Tab) 40 mg DAILY@06 PO Last administered on 09/09/18 05:46; Admin Dose 40 MG; Start 09/09/18 at 06:00 GERALD DAILY Sep 09, 2018 11:48
[2018-09-09] MEDS: morphine 2 MG INJ IV PRN (13:27)
[2018-09-09] MEDS: AMITRIPTYLINE 50 MG TAB PO SCH (21:20)
[2018-09-09] MEDS: MAGNESIUM HYDROXIDE 30ML CUP PO SCH (21:24)
[2018-09-10 04:31] VITALS: BP 116/71; PULSE 88; RESP 18
[2018-09-10] MEDS: PANTOPRAZOLE (EC) 40 MG TAB PO SCH (06:49)
[2018-09-10 07:29] VITALS: BP 112/83; PULSE 80; RESP 18
[2018-09-10] MEDS: MAGNESIUM HYDROXIDE 30ML CUP PO SCH ×2 (09:00→20:40)
[2018-09-10] MEDS: IBUPROFEN 800 MG TAB PO SCH ×2 (09:48→20:39)
[2018-09-10] MEDS: FUROSEMIDE 20 MG TAB PO SCH (09:48)
[2018-09-10] MEDS: ASPIRIN 81 MG TAB PO SCH (09:48)
[2018-09-10] MEDS: CLOPIDOGREL 75 MG TAB PO SCH (09:48)
[2018-09-10] MEDS: LISINOPRIL 10 MG TAB PO SCH (09:48)
[2018-09-10] MEDS: ENOXAPARIN 30 MG/0.3 ML SYG SC SCH (09:52)
--- NOTE | 2018-09-10 10:01 | PN ---
Date/Time of Note Date/Time of Note DATE: 09/10/18 TIME: 10:01 Assessment/Plan VTE Prophylaxis Risk score (from Ns)>0 risk: 6 SCD applied (from Ns): No SCD contraindicated: other Pharmacological prophylaxis: LMWH Lines/Catheters IV [facility]from [facility] Saline Lock Urinary Cath still in place: No Assessment/Plan Hospital Course 1) chest pain - troponins are negative, order 2D echo - continue PPI, add MOM - await cardiology 2) hypertension - continue home meds Result Diagram: 09/07/18 2330 09/07/18 2330 Subjective 24 Hr Interval Summary Free Text/Dictation Patient still has chest pain Exam/Review of Systems Exam Vitals Vital Signs Date Temp Pulse Resp B/P (MAP) Pulse Ox O2 O2 Flow FiO2 Time Delivery Rate 09/10/18 98.5 09:48 09/10/18 Nasal 2.0 07:54 Cannula 09/10/18 80 18 112/83 99 07:29 (93) 09/07/18 21 23:34 Intake and Output 09/09/18 09/09/18 09/10/18 1515:00 23:00 07:00 IntakeIntake Total 480 ml 240 ml 200 ml OutputOutput Total 2 ml 2 ml BalanceBalance 478 ml 238 ml 200 ml Constitutional: well developed Head: normocephalic, atraumatic Neck: supple Respiratory: diminished breath sounds Cardiovascular: regular rate and rhythm Gastrointestinal: soft, non-tender Extremities: normal pulses Medications Medication Current Medications Morphine Sulfate (morphine) 2 mg Q4H PRN IV SEVERE PAIN Last administered on 09/09/18at 13:27; Admin Dose 2 MG; Start 09/08/18 at 07:30 Enoxaparin Sodium (Lovenox) 30 mg DAILY SC Last administered on 09/10/18at 09:52; Admin Dose 30 MG; Start 09/09/18 at 09:00 Amitriptyline HCl (Elavil) 50 mg QHS PO Last administered on 09/09/18at 21:20; Admin Dose 50 MG; Start 09/08/18 at 21:00 Aspirin (Aspirin) 81 mg DAILY PO Last administered on 09/10/18at 09:48; Admin Dose 81 MG; Start 09/09/18 at 09:00 Clopidogrel Bisulfate (plaVIX) 75 mg DAILY PO Last administered on 09/10/18 09:48; Admin Dose 75 MG; Start 09/09/18 at 09:00 Furosemide (Lasix) 20 mg QAM PO Last administered on 09/10/18 09:48; Admin Dose 20 MG; Start 09/09/18 at 09:00 Ibuprofen (Motrin) 800 mg BID PO Last administered on 09/10/18 09:48; Admin Dose 800 MG; Start 09/08/18 at 21:00 Ibuprofen (Motrin) 200 mg Q6H PRN PO PAIN Last administered on 09/09/18 06:57; Admin Dose 200 MG; Start 09/08/18 at 15:00 Lisinopril (Zestril) 10 mg DAILY PO Last administered on 09/10/18 09:48; Admin Dose 10 MG; Start 09/09/18 at 09:00 Pantoprazole (Protonix Tab) 40 mg DAILY@06 PO Last administered on 09/10/18 06:49; Admin Dose 40 MG; Start 09/09/18 at 06:00 Magnesium Hydroxide (Milk Of Mag) 30 ml BID PO Last administered on 09/09/18 21:24; Admin Dose 30 ML; Start 09/09/18 at 21:00 GERALD DAILY Sep 10, 2018 10:01
[2018-09-10 11:37] VITALS: BP 138/81; PULSE 72; RESP 18
--- NOTE | 2018-09-10 11:39 | CONS ---
Assessment/Plan Assessment/Plan Assessment/Plan (Daily) Atypical chest pain - some reproduciblecomponent and lasted 24 hrs with no change in enzymes nonspecific EKG findings with negative troponin x 3 will check echo acute renal failure will hold lasix and JULIO I for now consider renal input Consultation Date/Type/Reason Admit Date/Time Sep 08, 2018 at 05:32 Type of Consult Cardiology Date/Time of Note DATE: 09/10/18 TIME: 11:33 Hx of Present Illness 63 year old with history of CAD s/p PCI 2017 to LAD presents with 24 hrs continuous chest burning now resolved. Chromnically short of breath long time smoker. Constitutional: improved Respiratory: shortness of breath Cardiovascular: No chest pain Past Medical History Home Meds Active Scripts Clopidogrel Bisulfate (Clopidogrel) 75 Mg Tablet, 75 MG PO DAILY, #90 TAB Prov:ARCADIO CORREA NP 01/15/17 Aspirin (Aspirin) 81 Mg Chew, 81 MG PO DAILY, #90 TAB Prov:ARCADIO CORREA NP 01/15/17 Reported Medications Lisinopril* (Lisinopril*) 10 Mg Tablet, 10 MG PO DAILY take 1 tablet by mouth once daily 09/08/18 Furosemide* (Furosemide*) 20 Mg Tablet, 20 MG PO QAM 09/08/18 Amitriptyline Hcl* (Amitriptyline Hcl*) 50 Mg Tablet, 50 MG PO QHS 09/08/18 Ibuprofen* (Ibuprofen*) 800 Mg Tablet, 800 MG PO BID take 1 tablet by mouth twice a day 09/08/18 Ibuprofen* (Advil*) 200 Mg Capsule, 200 MG PO Q6H PRN for PAIN, CAP 09/08/18 Discontinued Scripts Sennosides* (Senna Lax*) 8.6 Mg Tablet, 2 TAB PO BID PRN for CONSTIPATION, #30 TAB Prov:ARCADIO CORREA NP 01/15/17 Carvedilol* (Carvedilol*) 6.25 Mg Tablet, 6.25 MG PO BID, #60 TAB Prov:ARCADIO CORREA NP 01/15/17 Oxycodone HCl/Acetaminophen (Percocet 5-325 mg Tablet) 1 Each Tablet, 1 EACH PO TID for PAIN, #15 TAB Prov:KELLEE RAHMAN MD 01/25/16 Medications Current Medications Morphine Sulfate (morphine) 2 mg Q4H PRN IV SEVERE PAIN Last administered on 09/09/18 13:27; Admin Dose 2 MG; Start 09/08/18 at 07:30 Enoxaparin Sodium (Lovenox) 30 mg DAILY SC Last administered on 09/10/18 09:52; Admin Dose 30 MG; Start 09/09/18 at 09:00 Amitriptyline HCl (Elavil) 50 mg QHS PO Last administered on 09/09/18 21:20; Admin Dose 50 MG; Start 09/08/18 at 21:00 Aspirin (Aspirin) 81 mg DAILY PO Last administered on 09/10/18 09:48; Admin Dose 81 MG; Start 09/09/18 at 09:00 Clopidogrel Bisulfate (plaVIX) 75 mg DAILY PO Last administered on 09/10/18 09:48; Admin Dose 75 MG; Start 09/09/18 at 09:00 Furosemide (Lasix) 20 mg QAM PO Last administered on 09/10/18 09:48; Admin Dose 20 MG; Start 09/09/18 at 09:00 Ibuprofen (Motrin) 800 mg BID PO Last administered on 09/10/18 09:48; Admin Dose 800 MG; Start 09/08/18 at 21:00 Ibuprofen (Motrin) 200 mg Q6H PRN PO PAIN Last administered on 09/09/18 06:57; Admin Dose 200 MG; Start 09/08/18 at 15:00 Lisinopril (Zestril) 10 mg DAILY PO Last administered on 09/10/18 09:48; Admin Dose 10 MG; Start 09/09/18 at 09:00 Pantoprazole (Protonix Tab) 40 mg DAILY@06 PO Last administered on 09/10/18 06:49; Admin Dose 40 MG; Start 09/09/18 at 06:00 Magnesium Hydroxide (Milk Of Mag) 30 ml BID PO Last administered on 09/09/18 21:24; Admin Dose 30 ML; Start 09/09/18 at 21:00 Allergies: Coded Allergies: No Known Drug Allergies (Unverified Allergy, Unknown, 09/08/18) Past Surgical History Past Surgical Hx: appendectomy, other Social History Smoking Status: Current every day smoker Exam/Review of Systems Vital Signs Vitals Vital Signs Date Temp Pulse Resp B/P (MAP) Pulse Ox O2 O2 Flow FiO2 Time Delivery Rate 09/10/18 98.2 10:33 09/10/18 Nasal 2.0 07:54 Cannula 09/10/18 80 18 112/83 99 07:29 (93) 09/07/18 21 23:34 Intake and Output 09/09/18 09/09/18 09/10/18 1515:00 23:00 07:00 IntakeIntake Total 480 ml 240 ml 200 ml OutputOutput Total 2 ml 2 ml BalanceBalance 478 ml 238 ml 200 ml Exam Constitutional: alert, oriented Respiratory: other (scattered rhonci) Cardiovascular: regular rate and rhythm Gastrointestinal: soft Labs Result Diagram: 09/07/18 2330 09/07/18 2330 Medications Medications Current Medications Morphine Sulfate (morphine) 2 mg Q4H PRN IV SEVERE PAIN Last administered on 09/09/18 13:27; Admin Dose 2 MG; Start 09/08/18 at 07:30 Enoxaparin Sodium (Lovenox) 30 mg DAILY SC Last administered on 09/10/18 09:52; Admin Dose 30 MG; Start 09/09/18 at 09:00 Amitriptyline HCl (Elavil) 50 mg QHS PO Last administered on 09/09/18 21:20; Admin Dose 50 MG; Start 09/08/18 at 21:00 Aspirin (Aspirin) 81 mg DAILY PO Last administered on 09/10/18 09:48; Admin Dose 81 MG; Start 09/09/18 at 09:00 Clopidogrel Bisulfate (plaVIX) 75 mg DAILY PO Last administered on 09/10/18 09:48; Admin Dose 75 MG; Start 09/09/18 at 09:00 Furosemide (Lasix) 20 mg QAM PO Last administered on 09/10/18 09:48; Admin Dose 20 MG; Start 09/09/18 at 09:00 Ibuprofen (Motrin) 800 mg BID PO Last administered on 09/10/18 09:48; Admin Dose 800 MG; Start 09/08/18 at 21:00 Ibuprofen (Motrin) 200 mg Q6H PRN PO PAIN Last administered on 09/09/18 06:57; Admin Dose 200 MG; Start 09/08/18 at 15:00 Lisinopril (Zestril) 10 mg DAILY PO Last administered on 09/10/18 09:48; Admin Dose 10 MG; Start 09/09/18 at 09:00 Pantoprazole (Protonix Tab) 40 mg DAILY@06 PO Last administered on 09/10/18 06:49; Admin Dose 40 MG; Start 09/09/18 at 06:00 Magnesium Hydroxide (Milk Of Mag) 30 ml BID PO Last administered on 09/09/18at 21:24; Admin Dose 30 ML; Start 09/09/18 at 21:00 KALEIGH BARRETO MD Sep 10, 2018 11:39
[2018-09-10] MEDS: morphine 2 MG INJ IV PRN (15:21)
[2018-09-10 15:30] VITALS: BP 131/92; PULSE 78; RESP 18
[2018-09-10 19:39] VITALS: BP 129/76; PULSE 87; RESP 20
[2018-09-10] MEDS: AMITRIPTYLINE 50 MG TAB PO SCH (20:39)
[2018-09-11] VITALS: BP 150/85; PULSE 92; RESP 18
[2018-09-11 04:47] VITALS: BP 100/67; PULSE 61; RESP 18
[2018-09-11] MEDS: PANTOPRAZOLE (EC) 40 MG TAB PO SCH (05:46)
[2018-09-11 07:48] VITALS: BP 129/78; PULSE 72; RESP 16
[2018-09-11] MEDS: IBUPROFEN 800 MG TAB PO SCH (09:04)
[2018-09-11] MEDS: ASPIRIN 81 MG TAB PO SCH (09:04)
[2018-09-11] MEDS: CLOPIDOGREL 75 MG TAB PO SCH (09:04)
[2018-09-11] MEDS: ENOXAPARIN 30 MG/0.3 ML SYG SC SCH (09:14)
[2018-09-11 11:21] VITALS: BP 118/79; PULSE 84; RESP 17
--- NOTE | 2018-09-11 12:55 | RADRPT ---
Echocardiogram Report Patient Name: Dianna CISNEROS ID: [id number] : 1955 ([id number] )Study Date: 09/09/2018 12:47:26 PM Gender: FAccession #: [id number] Tech: [facility] Location: [facility] Ref.Physician: GERALD DAILY Height(Cm): 165 BSA: 1.49Weight(Kg): 48.5 Quality: AdequateOrder Physician: GERALD DAILY Account #: Procedures: Echocardiographic Report: Transthoracic echocardiogram with complete 2D, M-Mode, and doppler examination. Indications: Chest Pain. Measurements: 2D/M Mode Doppler Measurement Value Normal Range Measurement Value Normal Range LVIDd 2D 4.3 [ 3.8 - 5.2 ] cm AV Peak Ifeanyi 1.1 [ 100.0 - 170.0 ] cm/se c LVIDs 2D 3.0 [ 2.2 - 3.5 ] cm AV Peak PG 5.0 [ 2.0 - 9.0 ] mmHg LVPWd 2D 1.1 [ 0.6 - 0.9 ] cm LVOT Peak Ifeanyi 0.6 [ 70.0 - 110.0 ] cm/sec IVSd 2D 1.2 [ 0.6 - 0.9 ] cm LVOT Peak PG 2.0 [ 2.0 - 6.0 ] mmHg AoR Diam 2D 3.3 [ 2.3 - 3.1 ] cm MV E Peak Ifeanyi 0.6 [ 60.0 - 130.0 ] cm/sec EDV 2D 82.2 [ 46.0 - 106.0 ] ml MV A Peak Ifeanyi 0.6 [ 100.0 - 120.0 ] cm/se c ESV 2D 34.7 [ 14.0 - 42.0 ] ml MV E/A 0.9 [ 0.8 - 1.5 ] ratio EF 2D 57.8 [ 54.0 - 74.0 ] percent MV PHT 56.0 [ 20.0 - 100.0 ] msec LA Dimen 2D 3.6 [ 2.7 - 3.8 ] cm MV Decel Time 190 [ 104 - 258 ] msec MV Decel [place] 3 Lat E` Ifeanyi 0.1 [ 10.0 - 15.0 ] cm/sec Lateral E/E` 8.3 [ 1.0 - 2.0 ] ratio Med E` Ifeanyi 0.1 cm/sec MV E/A 0.9 [ 0.8 - 1.5 ] ratio MVA PHT 3.9 [ 2.0 - 4.0 ] cm2 TR Peak Ifeanyi 3.2 [ 100.0 - 280.0 ] cm/se c PV Peak Ifeanyi 0.9 [ 40.0 - 80.0 ] cm/sec PV Peak PG 3.0 mmHg RVSP 43.0 [ 10.0 - 36.0 ] mmHg RA Pressure 3.0 mmHg Findings: Left Ventricle: Normal left ventricular systolic function. Normal left ventricular cavity size. Mild concentric left ventricular hypertrophy. Ejection fraction is visually estimated at 65 %. Tissue Doppler/Mitral Doppler indices are consistent with impaired relaxation (Stage I diastolic dysfunction). Right Ventricle: Normal right ventricular size. Normal right ventricular systolic function. Left Atrium: The left atrium is normal in size. Right Atrium: The right atrium is normal in size. Mitral Valve: Normal appearance and function of the mitral valve with trace physiologic regurgitation. Aortic Valve: Normal appearance of the aortic valve. No significant aortic stenosis or insufficiency. Tricuspid Valve: Normal appearance of the tricuspid valve. The estimated Peak RVSP is 43 mmHg. There is mild tricuspid regurgitation. Pulmonic Valve: Normal pulmonic valve appearance. No evidence of pulmonic regurgitation. Pericardium: Normal pericardium with no significant pericardial effusion. Aorta: Normal aortic root. IVC: Normal size and normal respiratory collapse consistent with normal right atrial pressure. Pulmonary Artery: Normal pulmonary artery size. Conclusions: Normal left ventricular systolic function. Normal left ventricular cavity size. Mild concentric left ventricular hypertrophy. Ejection fraction is visually estimated at 65 %. Tissue Doppler/Mitral Doppler indices are consistent with impaired relaxation (Stage I diastolic dysfunction). Normal right ventricular size. Normal right ventricular systolic function. The left atrium is normal in size. The right atrium is normal in size. Normal appearance of the tricuspid valve. The estimated Peak RVSP is 43 mmHg. There is mild tricuspid regurgitation. No significant valvular stenosis or regurgitation seen of remaining visualized valves. Normal pericardium with no significant pericardial effusion. Electronically Signed By: Juno Wallace 2018-09-11 12:54:34 PDT
--- NOTE | 2018-09-11 12:57 | PN ---
Date/Time of Note Date/Time of Note DATE: 09/11/18 TIME: 12:56 Assessment/Plan VTE Prophylaxis Risk score (from Ns)>0 risk: 4 SCD applied (from [facility]): No SCD contraindicated: other Pharmacological prophylaxis: LMWH Lines/Catheters IV Catheter Type (from [facility]): Saline Lock Urinary Cath still in place: No Assessment/Plan Hospital Course 1) chest pain - troponins are negative, order 2D echo - continue PPI, add MOM - await cardiology 2) hypertension - continue home meds Result Diagram: 09/07/18 2330 09/07/18 2330 Subjective 24 Hr Interval Summary Free Text/Dictation Patient still has some chest pain but seems to be pleuritic Exam/Review of Systems Exam Vitals Vital Signs Date Temp Pulse Resp B/P (MAP) Pulse Ox O2 O2 Flow FiO2 Time Delivery Rate 09/11/18 98.3 84 17 118/79 94 11:21 (92) 09/11/18 Nasal 2.0 08: Cannula 09/07/18 21 23:34 Intake and Output 09/10/18 09/10/18 09/11/18 1515:00 23:00 07:00 IntakeIntake Total 750 ml 350 ml BalanceBalance 750 ml 350 ml Constitutional: well developed Head: normocephalic, atraumatic Neck: supple Respiratory: diminished breath sounds Cardiovascular: regular rate and rhythm Gastrointestinal: soft, non-tender Extremities: normal pulses Medications Medication Current Medications Morphine Sulfate (morphine) 2 mg Q4H PRN IV SEVERE PAIN Last administered on 09/10/18at 15:21; Admin Dose 2 MG; Start 09/08/18 at 07:30 Enoxaparin Sodium (Lovenox) 30 mg DAILY SC Last administered on 09/11/18 09:14; Admin Dose 30 MG; Start 09/09/18 at 09:00 Amitriptyline HCl (Elavil) 50 mg QHS PO Last administered on 09/10/18 20:39; Admin Dose 50 MG; Start 09/08/18 at 21:00 Aspirin (Aspirin) 81 mg DAILY PO Last administered on 09/11/18 09:04; Admin Dose 81 MG; Start 09/09/18 at 09:00 Clopidogrel Bisulfate (plaVIX) 75 mg DAILY PO Last administered on 09/11/18 09:04; Admin Dose 75 MG; Start 09/09/18 at 09:00 Ibuprofen (Motrin) 800 mg BID PO Last administered on 09/11/18 09:04; Admin Dose 800 MG; Start 09/08/18 at 21:00 Ibuprofen (Motrin) 200 mg Q6H PRN PO PAIN Last administered on 09/09/18 06:57; Admin Dose 200 MG; Start 09/08/18 at 15:00 Pantoprazole (Protonix Tab) 40 mg DAILY@06 PO Last administered on 09/11/18 05:46; Admin Dose 40 MG; Start 09/09/18 at 06:00 Magnesium Hydroxide (Milk Of Mag) 30 ml BID PO Last administered on 09/10/18 20:40; Admin Dose 30 ML; Start 09/09/18 at 21:00 GERALD DAILY Sep 11, 2018 12:57
--- NOTE | 2018-09-11 13:06 | DS ---
Date/Time of Note Date/Time of Note DATE: 09/11/18 TIME: 13:05 Discharge Summary Admission/Discharge Info Admit Date/Time Sep 10, 2018 at 10:33 Discharge Date/Time 09/11/18 Discharge Diagnosis 1) chest pain 2) GERD Patient Condition: Fair Consults Cardiology Procedures 2D Echo Hx of Present Illness Patient with hypertension, coronary artery disease comes in with 3 days of chest pain that seems to be continuously and may be worsened with eating. Patient has a history of coronary artery disease and had stent placement in the past. Patient currently still has chest pain. Hospital Course Patient with hypertension, coronary artery disease comes in with 3 days of chest pain that seems to be continuously and may be worsened with eating. Patient has a history of coronary artery disease and had stent placement in the past. Patient currently still has chest pain. Patient was given protonix and her pain seem to be improved. Once cleared by cardiology, patient was felt to be stable and will be sent home with protonix. 1) chest pain - troponins are negative, order 2D echo - continue PPI, add MOM - await cardiology 2) hypertension - continue home meds Home Meds Active Scripts Pantoprazole* (Pantoprazole*) 40 Mg Tablet., 40 MG PO DAILY@06 for 30 Days, #30 Prov:GERALD DAILY 09/11/18 Clopidogrel Bisulfate (Clopidogrel) 75 Mg Tablet, 75 MG PO DAILY, #90 TAB Prov:ARCADIO CORREA [employer] 01/15/17 Aspirin (Aspirin) 81 Mg Chew, 81 MG PO DAILY, #90 TAB Prov:ARCADIO CORREA [employer] 01/15/17 Reported Medications Lisinopril* (Lisinopril*) 10 Mg Tablet, 10 MG PO DAILY take 1 tablet by mouth once daily 09/08/18 Furosemide* (Furosemide*) 20 Mg Tablet, 20 MG PO QAM 09/08/18 Amitriptyline Hcl* (Amitriptyline Hcl*) 50 Mg Tablet, 50 MG PO QHS 09/08/18 Ibuprofen* (Ibuprofen*) 800 Mg Tablet, 800 MG PO BID take 1 tablet by mouth twice a day 09/08/18 Ibuprofen* (Advil*) 200 Mg Capsule, 200 MG PO Q6H PRN for PAIN, CAP 09/08/18 Discontinued Scripts Sennosides* (Senna Lax*) 8.6 Mg Tablet, 2 TAB PO BID PRN for CONSTIPATION, #30 TAB Prov:ARCADIO CORREA NP 01/15/17 Carvedilol* (Carvedilol*) 6.25 Mg Tablet, 6.25 MG PO BID, #60 TAB Prov:ARCADIO CORREA NP 01/15/17 Oxycodone HCl/Acetaminophen (Percocet 5-325 mg Tablet) 1 Each Tablet, 1 EACH PO TID for PAIN, #15 TAB Prov:KELLEE RAHMAN MD 01/25/16 Primary Care Provider Not On Staff Doctor GERALD DAILY Sep 11, 2018 13:06
[2018-09-11 15:44] VITALS: BP 142/86; PULSE 69; RESP 17
--- NOTE | 2018-09-11 19:13 | CONS ---
Assessment/Plan Assessment/Plan Hospital Course (Demo Recall) Chest pain CAD with history of PCI Preserved left ventricular ejection fraction Hypertension Chest pain is reproducible with arm movements and palpation of chest wall Serial cardiac enzymes are negative Continue dual antiplatelet therapy Consultation Date/Type/Reason Admit Date/Time Sep 10, 2018 at 10:33 Initial Consult Date Type of Consult Cardiology Date/Time of Note DATE: 09/11/18 TIME: 19:11 24 HR Interval Summary Free Text/Dictation Chest pain is with arm movements and pushing on chest wall. Denies shortness of breath or exertional chest pain Exam/Review of Systems Vital Signs Vitals Vital Signs Date Temp Pulse Resp B/P (MAP) Pulse Ox O2 O2 Flow FiO2 Time Delivery Rate 09/11/18 97.9 69 17 142/86 97 15:44 (104) 09/11/18 Nasal 2.0 08:19 Cannula 09/07/18 21 23:34 Intake and Output 09/10/18 09/10/18 09/11/18 1414:59 22:59 06:59 IntakeIntake Total 750 ml 350 ml BalanceBalance 750 ml 350 ml Exam Constitutional: alert, oriented Head: normocephalic Respiratory: other (course bs, no wheeze) Cardiovascular: regular rate and rhythm (s1s2) Gastrointestinal: soft, non-tender, bowel sounds Extremities: other (no edema) Labs Result Diagram: 09/07/18232909/07/[id number] Juno Wallace DO Sep 11, 2018 19:13
== END 2018-09-11 16:19 | disposition home or self-care (01) | DRG 313 ==
LOC: E/R 21:29 → TEL 09-08 05:32 → OBSVTOIN 09-10 10:33
PROVIDERS: ADMIT Internal Medicine; ATTEND Internal Medicine
DX: R07.89 Other chest pain (principal); N17.9 Acute kidney failure, unspecified; I25.10 Atherosclerotic heart disease of native coronary artery without angina pectoris; I10 Essential (primary) hypertension; K21.9 Gastro-esophageal reflux disease without esophagitis; F17.200 Nicotine dependence, unspecified, uncomplicated; Z95.5 Presence of coronary angioplasty implant and graft; I51.89 Other ill-defined heart diseases
CPT/HCPCS: 36415; 71045; 80053; 81001; 81003; 83690; 83880; 84484; 85025; 93005; 93306; 94644; 94645; 96374; 96375; G0378; J1650; J1885; J2270; J2930; J7030